=== PATIENT | female | born 1935 | race Caucasian/White ===

== ENCOUNTER → 2017-08-09 | Outpatient (CLI) | payer MEDICARE ==
[~2017-08-09] MED LIST: CALC1TAB87 PO; CHOL1CAP34 PO; DOCU1CAP39 PO; HYDR2.5%T PR; LEVO.1 PO; LEVO100T5 PO; METR250 PO; PYRI50TA5 PO; b/p med
[2017-08-09 13:07] LABS: AUTOMATED NEUTROPHIL # 5.4 TH/MM3 (1.8-7.7); BASOPHIL # 0.1 TH/MM3 (0-0.2); BASOPHIL % 0.8 % (0.0-2.0); EOSINOPHIL % 0.2 % (0.0-4.0); HEMATOCRIT 33.1 % (35.0-46.0); HEMOGLOBIN 10.7 GM/DL (11.6-15.3); LYMPH % 14.1 % (9.0-44.0); MEAN CELL VOLUME 92.1 FL (80.0-100.0); MEAN CORPUSCULAR HEMOGLOBIN 29.8 PG (27.0-34.0); MEAN CORPUSCULAR HGB CONC 32.4 % (32.0-36.0); MEAN PLATELET VOLUME 9.1 FL (7.0-11.0); MONO % 10.4 % (0.0-8.0); MONOCYTE # 0.8 TH/MM3 (0-0.9); NEUT % 74.5 % (16.0-70.0); PLATELET COUNT 257 TH/MM3 (150-450); RED BLOOD COUNT 3.59 MIL/MM3 (4.00-5.30); RED CELL DISTRIBUTION WIDTH 14.3 % (11.6-17.2); WHITE BLOOD COUNT 7.2 TH/MM3 (4.0-11.0)
== END ==
LOC: PLAB 10:53
PROVIDERS: ATTEND Family Medicine
DX: K92.1 Melena (principal)
CPT/HCPCS: 36415; 85025

== ENCOUNTER 2017-08-10 09:33 | Inpatient (IN) | payer MEDICARE ==
[~2017-08-10] VITALS: Ht 154.9 cm; Wt 97.0 kg
[2017-08-10] VITALS (15 sets, daily range): BP systolic 118–177; BP diastolic 54–85; PULSE 65–108; RESP 15–25; TEMP 97.2–98.5; O2SAT 95–98
[~2017-08-10 09:33] MED LIST changes: -CALC1TAB87 PO; -CHOL1CAP34 PO; -LEVO100T5 PO; -PYRI50TA5 PO; -b/p med
--- NOTE | 2017-08-10 09:57 | PD ---
HPI Chief Complaint: GI Complaint Time Seen by Provider: 09:45 Travel History International Travel<30 days: No Contact w/Intl Traveler<30days: No Traveled to known affect area: No History of Present Illness HPI 81-year-old female states Sunnes morning she developed rectal bleeding. She states she has a history of bleeding in her colon and hemorrhoids. She went to her doctor yesterday and they checked blood work and gave her hemorrhoid cream but the bleeding continues and now she feels weak. She states she is having no pain, fever or other concurrent complaints. She feels worse when she moves around. She denies other modifying factors. Quality is black. Severity is persistent. Duration is 2 days. Patient notes taking Aleve for her knee over the past week. PFSH Past Medical History Arthritis: Yes (KNEES) Asthma: Yes (BRONCHIAL CHRONIC SEASONAL WITH COPD) Autoimmune Disease: No Anxiety: No Depression: No Heart Rhythm Problems: No Cancer: No Cardiovascular Problems: No High Cholesterol: No Chemotherapy: No Chest Pain: No Congestive Heart Failure: No COPD: Yes Cerebrovascular Accident: No Diabetes: Yes Diminished Hearing: No Endocrine: Yes (PARTIAL THYREIDECTOMY) Gastrointestinal Disorders: Yes (ULCERS COLON POLYPS) GERD: No Genitourinary: No Hiatal Hernia: No Immune Disorder: No Kidney Stones: No Musculoskeletal: No Neurologic: No Psychiatric: No Reproductive: No Respiratory: Yes Immunizations Current: Yes Migraines: No Radiation Therapy: No Renal Failure: No Seizures: No Sickle Cell Disease: No Sleep Apnea: Yes (USES MACHINE PRN) Ulcer: Yes (50 YEARS AGO) ?: Not Menopausal: Yes Past Surgical History Abdominal Surgery: Yes (STOMACHE ULCERS) AICD: No Arteriovenous Shunt: No Cardiac Surgery: No Ear Surgery: No Endocrine Surgery: Yes (PARTIAL THYROID REMOVAL) Eye Surgery: Yes (CATARACT BILATERAL) Genitourinary Surgery: No Gynecologic Surgery: No Insulin Pump: No Joint Replacement: No Oral Surgery: No Pacemaker: No Thoracic Surgery: No Other Surgery: Yes (LEG VEINS) Social History Alcohol Use: Yes (OCC) Tobacco Use: No Substance Use: No Allergies-Medications (Allergen,Severity, Reaction): Coded Allergies: No Known Allergies (Unverified Allergy, Unknown, 08/10/17) Reported Meds & Prescriptions Reported Meds & Active Scripts Active Reported [b/p med] Vitamin D3 (Cholecalciferol) 50,000 Unit Cap 50,000 Units PO Q7D Levothyroxine (Levothyroxine Sodium) 100 Mcg Tab 100 Mcg PO DAILY Review of Systems Except as stated in HPI: all other systems reviewed are Neg Physical Exam Narrative GENERAL: Well-nourished, well-developed patient. SKIN: Warm and dry. HEAD: Normocephalic and atraumatic. EYES: No injection or drainage. ENT: No nasal drainage noted. NECK: Supple, trachea midline. CARDIOVASCULAR: Regular rate and rhythm RESPIRATORY: No increased effort. No accessory muscle use. GASTROINTESTINAL: Abdomen soft, non-tender, nondistended. RECTAL EXAM: Performed with technology engineer and after permission. No thrombosed external hemorrhoid or large fissure, stool is black and bloody. NEUROLOGICAL: Awake and alert. Moves all extremities and sensory grossly within normal limits. Normal speech. Data Data Last Documented VS Vital Signs Date Time Temp Pulse Resp B/P (MAP) Pulse Ox O2 Delivery O2 Flow Rate FiO2 08/10/17 09:58 98 Room Air 08/10/17 09:40 98.0 107 16 118/72 (87) Orders Orders Complete Blood Count With Diff (08/10/17 09:50) Comprehensive Metabolic Panel (08/10/17 09:50) Prothrombin Time / Inr (Pt) (08/10/17 09:50) Act Partial Throm Time (Ptt) (08/10/17 09:50) Type And Screen (08/10/17 09:50) Ecg Monitoring (08/10/17 09:50) Iv Access Insert/Monitor (08/10/17 09:50) Oximetry (08/10/17 09:50) Pantoprazole Inj (Protonix Inj) (08/10/17 10:00) Sodium Chloride 0.9% Flush (Ns Flush) (08/10/17 10:00) Blood Product Administration (08/10/17 10:27) Sodium Chlor 0.9% 250 Ml Inj (Ns 250 Ml (08/10/17 10:30) Sodium Chloride 0.9... W/Pantoprazole In (08/10/17 11:09) Admit Order (Ed Use Only) (08/10/17 11:16) Admit To Inpatient (08/10/17 ) Vital Signs (Adult) Q4H (08/10/17 11:16) Activity Oob With Assistance (08/10/17 11:16) Intake + Output DANTE.QSHIFT (08/10/17 11:16) Diet Npo (08/10/17 Lunch) Sodium Chlor 0.9% 1000 Ml Inj (Ns 1000 M (08/10/17 11:16) Sodium Chloride 0.9% Flush (Ns Flush) (08/10/17 11:30) Sodium Chloride 0.9% Flush (Ns Flush) (08/10/17 21:00) Acetaminophen (Tylenol) (08/10/17 11:30) Ondansetron Inj (Zofran Inj) (08/10/17 11:30) Temazepam (Restoril) (08/10/17 11:30) Basic Metabolic Panel (Bmp) (08/11/17 06:00) Complete Blood Count With Diff (08/11/17 06:00) Resp Oxygen Ayush C Titrat 1-4 L (08/10/17 ) Pt Request For Service (08/10/17 11:16) Case Management Consult (08/10/17 11:16) Scd Bilateral/Knee High DANTE.BID (08/10/17 11:16) Bertram Bilateral/Knee High DANTE.QSHIFT (08/10/17 11:16) Pharmacologic Contraindication (08/10/17 11:16) Naloxone Inj (Narcan Inj) (08/10/17 11:30) Docusate Sodium-Senna (Kristin-Colace) (08/10/17 21:00) Magnesium Hydroxide Liq (Milk Of Magnesi (08/10/17 11:30) Sennosides (Senokot) (08/10/17 11:30) Bisacodyl Supp (Dulcolax Supp) (08/10/17 11:30) Lactulose Liq (Lactulose Liq) (08/10/17 11:30) Inpatient Certification (08/10/17 ) Levothyroxine (Synthroid) (08/11/17 09:00) (Nf) Cholecalciferol (Vitamin D3) (08/10/17 11:30) Consult Gastroenterology (08/10/17 ) Labs Laboratory Tests Test 08/10/17 10:08 White Blood Count 6.4 TH/MM3 Red Blood Count 2.83 MIL/MM3 Hemoglobin 8.3 GM/DL Hematocrit 25.8 % Mean Corpuscular Volume 90.9 FL Mean Corpuscular Hemoglobin 29.3 PG Mean Corpuscular Hemoglobin Concent 32.2 % Red Cell Distribution Width 13.7 % Platelet Count 243 TH/MM3 Mean Platelet Volume 8.3 FL Neutrophils (%) (Auto) 73.9 % Lymphocytes (%) (Auto) 17.7 % Monocytes (%) (Auto) 7.4 % Eosinophils (%) (Auto) 0.3 % Basophils (%) (Auto) 0.7 % Neutrophils # (Auto) 4.8 TH/MM3 Lymphocytes # (Auto) 1.1 TH/MM3 Monocytes # (Auto) 0.5 TH/MM3 Eosinophils # (Auto) 0.0 TH/MM3 Basophils # (Auto) 0.0 TH/MM3 CBC Comment DIFF FINAL Differential Comment Prothrombin Time 10.7 SEC Prothromb Time International Ratio 1.1 RATIO Activated Partial Thromboplast Time 22.7 SEC Blood Urea Nitrogen 15 MG/DL Creatinine 0.60 MG/DL Random Glucose 173 MG/DL Total Protein 5.4 GM/DL Albumin 2.6 GM/DL Calcium Level 7.7 MG/DL Alkaline Phosphatase 60 U/L Aspartate Amino Transf (AST/SGOT) 13 U/L Alanine Aminotransferase (ALT/SGPT) 14 U/L Total Bilirubin 0.2 MG/DL Sodium Level 142 MEQ/L Potassium Level 4.0 MEQ/L Chloride Level 108 MEQ/L Carbon Dioxide Level 26.9 MEQ/L Anion Gap 7 MEQ/L Estimat Glomerular Filtration Rate 96 ML/MIN MDM Medical Decision Making Medical Screen Exam Complete: Yes Emergency Medical Condition: Yes Medical Record Reviewed: Yes (past history confirm, prior scope with diverticulosis, internal hemorrhoids, normal EGD) Interpretation(s) CBC & BMP Diagram 08/10/17 10:08 Total Protein 5.4 L, Albumin 2.6 L, Calcium Level 7.7 L, Alkaline Phosphatase 60 , Aspartate Amino Transf (AST/SGOT) 13 L, Alanine Aminotransferase (ALT/SGPT) 14 , Total Bilirubin 0.2 Differential Diagnosis Diverticulosis, ulcer, hemorrhoid, anemia Narrative Course Will check blood work and dose with Protonix and reevaluate patient with worsening anemia of 8.3. Given active bleeding will transfuse 1 unit, note from GI also mentions gastritis so given recent NSAID use Will give Protonix drip and discuss with GI Patient updated and agrees to transfusion and admission Critical Care Narrative Aggregate critical care time was 31 minutes. Time to perform other separately billable procedures was not included in the critical care time. My time did not include minutes spent treating any other patients simultaneously or on activities that did not directly contribute to the patient's treatment. The services I provided to this patient were to treat and/or prevent clinically significant deterioration that could result in: Shock, I provided critical care services requiring my management, as noted below: Chart data review, documentation time, medication orders and management, vital sign assessments/reviewing monitor data, ordering and reviewing lab tests, ordering and interpreting/reviewing x-rays and diagnostic studies, care of the patient and discussion of the patient with the admitting physicians. Physician Communication Physician Communication dr arteaga states can stay in [place], agree to protonix drip and will follow dr robert agrees to admit Diagnosis Primary Impression: Rectal bleeding Additional Impression: Anemia Qualified Codes: D64.9 - Anemia, unspecified Admitting Information Admitting Physician Requests: Admit Princess Ramos MD Aug 10, 2017 09:57
[2017-08-10] MEDS ORDERED: CHOL1CAP34 PO (10:00)
[2017-08-10] MEDS ORDERED: b/p med (10:00)
[2017-08-10] MEDS ORDERED: LEVO100T5 PO (10:00)
[2017-08-10] MEDS ORDERED: PANTOPRAZOLE SODIUM 40 MG VIAL IVP ONE (10:00)
[2017-08-10] MEDS ORDERED: SODIUM CHLORIDE 0.9% FLUSH 10 ML FLUSH IVF PRN (10:00)
[2017-08-10 10:14] LABS: AUTOMATED NEUTROPHIL # 4.8 TH/MM3 (1.8-7.7); BASOPHIL % 0.7 % (0.0-2.0); EOSINOPHIL % 0.3 % (0.0-4.0); HEMATOCRIT 25.8 % (35.0-46.0); HEMOGLOBIN 8.3 GM/DL (11.6-15.3); LYMPH % 17.7 % (9.0-44.0); LYMPHOCYTE # 1.1 TH/MM3 (1.0-4.8); MEAN CELL VOLUME 90.9 FL (80.0-100.0); MEAN CORPUSCULAR HEMOGLOBIN 29.3 PG (27.0-34.0); MEAN CORPUSCULAR HGB CONC 32.2 % (32.0-36.0); MEAN PLATELET VOLUME 8.3 FL (7.0-11.0); MONO % 7.4 % (0.0-8.0); MONOCYTE # 0.5 TH/MM3 (0-0.9); NEUT % 73.9 % (16.0-70.0); PLATELET COUNT 243 TH/MM3 (150-450); RED BLOOD COUNT 2.83 MIL/MM3 (4.00-5.30); RED CELL DISTRIBUTION WIDTH 13.7 % (11.6-17.2); WHITE BLOOD COUNT 6.4 TH/MM3 (4.0-11.0)
[2017-08-10 10:22] LABS: CHLORIDE 108 MEQ/L (98-107); SODIUM (NA) 142 MEQ/L (136-145)
[2017-08-10 10:25] LABS: ALBUMIN 2.6 GM/DL (3.4-5.0); BICARBONATE 26.9 MEQ/L (21.0-32.0); BLOOD UREA NITROGEN 15 MG/DL (7-18); CALCIUM 7.7 MG/DL (8.5-10.1); GLUCOSE,RANDOM 173 MG/DL (74-106)
[2017-08-10 10:27] LABS: INTERNATIONAL NORMALIZED RATIO 1.1 RATIO; PROTHROMBIN TIME - PATIENT 10.7 SEC (9.8-11.6)
[2017-08-10 10:28] LABS: ALT (GPT) 14 U/L (10-53); AST (GOT) 13 U/L (15-37)
[2017-08-10 10:29] LABS: GLOMERULAR FILTRATION RATE 96 ML/MIN (>89)
[2017-08-10 10:30] LABS: TOTAL BILIRUBIN ADULT 0.2 MG/DL (0.2-1.0); TOTAL PROTEIN 5.4 GM/DL (6.4-8.2)
[2017-08-10] MEDS ORDERED: SODIUM CHLOR 0.9% 250 ML INJ 250 ML IV ONE ×2 (10:30→13:45)
[2017-08-10 10:31] LABS: ALKALINE PHOSPHATASE 60 U/L (45-117)
[2017-08-10] MEDS ORDERED: SODIUM CHLORIDE 0.9% FLUSH 10 ML FLUSH IV FLUSH PRN (11:30)
[2017-08-10] MEDS ORDERED: NALOXONE HCL 0.4 MG/ML AMP IV PUSH PRN (11:30)
[2017-08-10] MEDS ORDERED: LACTULOSE SYRUP 20 GM/30 ML CUP PO PRN (11:30)
[2017-08-10] MEDS ORDERED: MAGNESIUM HYDROXIDE SUSP 30 ML CUP PO PRN (11:30)
[2017-08-10] MEDS ORDERED: TEMAZEPAM 15 MG CAP PO PRN (11:30)
[2017-08-10] MEDS ORDERED: SENNOSIDES 8.6 MG TAB PO PRN (11:30)
[2017-08-10] MEDS ORDERED: ONDANSETRON HCL 4 MG/2 ML VIAL IVP PRN (11:30)
[2017-08-10] MEDS ORDERED: ACETAMINOPHEN 325 MG TAB PO PRN (11:30)
[2017-08-10] MEDS ORDERED: NON-FORMULARY DRUG (Cholecalciferol (Vitamin D3) 50,000 UNITS) PO SCH (11:30)
[2017-08-10] MEDS ORDERED: BISACODYL 10 MG SUPP RECTAL PRN (11:30)
[2017-08-10] MEDS: PANTOPRAZOLE INJ 80 MG in SODIUM CHLORIDE 0.9% INJ 100 ML IV SCH ×2 (11:41→21:23)
[2017-08-10] MEDS ORDERED: CALC1TAB87 PO (13:09)
--- NOTE | 2017-08-10 13:20 | HHI.HP ---
[facility] Wen Carmen MD Admission Diagnosis GI bleed Diagnoses: (1) Anemia (2) Rectal bleeding Chief Complaint: Bloody stools Travel History International Travel<30 Days: No Contact w/Intl Traveler <30 Da: No Traveled to Known Affected Are: No History of Present Illness Written by Chrissy Sandoval, acting as scribe for Dr. Hu on 08/10/17 at 13:15. Ms. Moran is an 81-year-old female patient with a known medical history of COPD, DM and history of gastric ulcers who presented to the ED with complaints of rectal bleeding x 2 days. Patient lives alone and has been feeling weak and passing blood in her stool so she decided to come into the ED. Does admit to taking Advil for knee inflammation x 7 days. Denies any recent illness including fever, chills, shortness of breath, abdominal pain, nausea, vomiting, diarrhea or dysuria. Denies any further bleeding since being hospitalized. Denies any chest pain or shortness of breath. Overall patient is pretty healthy and denies any other acute complaints. PCP is Dr. Edouard. Review of Systems Constitutional: DENIES: Fever, Chills Respiratory: DENIES: Cough, Shortness of breath Cardiovascular: DENIES: Syncope Gastrointestinal: COMPLAINS OF: Bloody stools, DENIES: Abdominal pain, Diarrhea , Nausea, Vomiting Psychiatric: DENIES: Anxiety Except as stated in HPI: all other systems reviewed are Neg Past Family Social History Past Medical History Arthritis COPD with chronic seasonal bronchitis Type 2 diabetes mellitus Partial thyroidectomy History of gastric ulcers History of colon polyps Past Surgical History Partial thyroid removal Bilateral cataracts Reported Medications Active Reported Calcium 600 with Vitamin D (Calcium Carbonate-Cholecalciferol) 600-400 mg-Unit Tab 2 Tab PO DAILY [b/p med] Vitamin D3 (Cholecalciferol) 50,000 Unit Cap 5,000 Units PO DAILY Levothyroxine (Levothyroxine Sodium) 100 Mcg Tab 100 Mcg PO DAILY Allergies: Coded Allergies: No Known Allergies (Unverified Allergy, Unknown, 08/10/17) Active Ordered Medications Current Medications Medications (Trade) Dose Ordered Sig/Odilia Route Start Time Stop Time Status Last Admin Sodium Chloride 250 ml @ 15 mls/hr ONCE ONCE IV 08/10/17 10:30 08/11/17 03:09 Pantoprazole Sodium 80 mg/ Sodium Chloride 100 ml @ 10 mls/hr Q10H IV 08/10/17 11:09 08/10/17 11:41 Sodium Chloride 1,000 ml @ 100 mls/hr Q10H IV 08/10/17 11:16 (NS Flush) 2 ml UNSCH PRN IV FLUSH 08/10/17 11:30 (NS Flush) 2 ml BID IV FLUSH 08/10/17 21:00 (Tylenol) 650 mg Q4H PRN PO 08/10/17 11:30 (Zofran Inj) 4 mg Q6H PRN IVP 08/10/17 11:30 (Restoril) 15 mg HS PRN PO 08/10/17 11:30 (Narcan Inj) 0.4 mg UNSCH PRN IV PUSH 08/10/17 11:30 (Kristin-Colace) 1 tab BID PO 08/10/17 21:00 (Milk Of Magnesia Liq) 30 ml Q12H PRN PO 08/10/17 11:30 (Senokot) 17.2 mg Q12H PRN PO 08/10/17 11:30 (Dulcolax Supp) 10 mg DAILY PRN RECTAL 08/10/17 11:30 (Lactulose Liq) 30 ml DAILY PRN PO 08/10/17 11:30 (Synthroid) 100 mcg DAILY@0600 PO 08/11/17 06:00 Non-Formulary Medication 50,000 units Q7D PO 08/10/17 11:30 UNV Family History Family medical history significant for DM. Social History Denies any tobacco, alcohol or illicit drug use. Physical Exam Vital Signs Vital Signs Date Time Temp Pulse Resp B/P (MAP) Pulse Ox O2 Delivery O2 Flow Rate FiO2 08/10/17 11:44 77 16 135/60 (85) Room Air 96 08/10/17 09:58 98 Room Air 08/10/17 09:40 98.0 107 16 118/72 (87) 95 Physical Exam GENERAL: This is a well-nourished, well-developed patient, in no apparent distress. SKIN: No rashes, ecchymoses or lesions. Cool and dry. HEAD: Atraumatic. Normocephalic. No temporal or scalp tenderness. EYES: Pupils equal round and reactive. Extraocular motions intact. No scleral icterus. No injection or drainage. ENT: Nose without bleeding, purulent drainage or septal hematoma. Throat without erythema, tonsillar hypertrophy or exudate. Uvula midline. Airway patent. NECK: Trachea midline. No JVD or lymphadenopathy. Supple, nontender, no meningeal signs. CARDIOVASCULAR: Regular rate and rhythm without murmurs, gallops, or rubs. RESPIRATORY: Clear to auscultation. Breath sounds equal bilaterally. No wheezes , rales, or rhonchi. GASTROINTESTINAL: Abdomen soft, non-tender, nondistended. No hepato-splenomegaly , or palpable masses. No guarding. MUSCULOSKELETAL: Extremities without clubbing, cyanosis, or edema. No joint tenderness, effusion, or edema noted. No calf tenderness. Negative Homans sign bilaterally. NEUROLOGICAL: Awake and alert. Cranial nerves II through XII intact. Motor and sensory grossly within normal limits. Five out of 5 muscle strength in all muscle groups. Normal speech. Laboratory Laboratory Tests Test 08/10/17 10:08 White Blood Count 6.4 Red Blood Count 2.83 Hemoglobin 8.3 Hematocrit 25.8 Mean Corpuscular Volume 90.9 Mean Corpuscular Hemoglobin 29.3 Mean Corpuscular Hemoglobin Concent 32.2 Red Cell Distribution Width 13.7 Platelet Count 243 Mean Platelet Volume 8.3 Neutrophils (%) (Auto) 73.9 Lymphocytes (%) (Auto) 17.7 Monocytes (%) (Auto) 7.4 Eosinophils (%) (Auto) 0.3 Basophils (%) (Auto) 0.7 Neutrophils # (Auto) 4.8 Lymphocytes # (Auto) 1.1 Monocytes # (Auto) 0.5 Eosinophils # (Auto) 0.0 Basophils # (Auto) 0.0 CBC Comment DIFF FINAL Differential Comment Prothrombin Time 10.7 Prothromb Time International Ratio 1.1 Activated Partial Thromboplast Time 22.7 Blood Urea Nitrogen 15 Creatinine 0.60 Random Glucose 173 Total Protein 5.4 Albumin 2.6 Calcium Level 7.7 Alkaline Phosphatase 60 Aspartate Amino Transf (AST/SGOT) 13 Alanine Aminotransferase (ALT/SGPT) 14 Total Bilirubin 0.2 Sodium Level 142 Potassium Level 4.0 Chloride Level 108 Carbon Dioxide Level 26.9 Anion Gap 7 Estimat Glomerular Filtration Rate 96 Result Diagram: 08/10/17 1008 08/10/17 1008 Septic Shock Reassessment Septic shock perfusion: reassessment completed Caprini VTE Risk Assessment Caprini VTE Risk Assessment: Mod/High Risk (score >= 2) Caprini Risk Assessment Model Point Value = 1 Point Value = 2 Point Value = 3 Point Value = 5 Age 41-60 Minor surgery BMI > 25 kg/m2 Swollen legs Varicose veins or History of unexplained or recurrent spontaneous Oral contraceptives or hormone replacement Sepsis (< 1 month) Serious lung disease, including pneumonia (< 1 month) Abnormal pulmonary function Acute myocardial infarction Congestive heart failure (< 1 month) History of inflammatory bowel disease Medical patient at bed rest Age 61-74 Arthroscopic surgery Major open surgery (> 45 min) Laparoscopic surgery (> 45 min) Malignancy Confined to bed (> 72 hours) Immobilizing plaster cast Central venous access Age >= 75 History of VTE Family history of VTE Factor V Leiden Prothrombin [id number] Lupus anticoagulant Anticardiolipin antibodies Elevated serum homocysteine Heparin-induced thrombocytopenia Other congenital or acquired thrombophilia Stroke (< 1 month) Elective arthroplasty Hip, pelvis, or leg fracture Acute spinal cord injury (< 1 month) Prophylaxis Regimen Total Risk Factor Score Risk Level Prophylaxis Regimen 0-1 Low Early ambulation 2 Moderate Order ONE of the following: *Sequential Compression Device (SCD) *Heparin 5000 units SQ BID 3-4 Higher Order ONE of the following medications: *Heparin 5000 units SQ TID *Enoxaparin/Lovenox 40 mg SQ daily (WT < 150 kg, CrCl > 30 mL/min) *Enoxaparin/Lovenox 30 mg SQ daily (WT < 150 kg, CrCl > 10-29 mL/min) *Enoxaparin/Lovenox 30 mg SQ BID (WT < 150 kg, CrCl > 30 mL/min) AND/OR *Sequential Compression Device (SCD) 5 or more Highest Order ONE of the following medications: *Heparin 5000 units SQ TID (Preferred with Epidurals) *Enoxaparin/Lovenox 40 mg SQ daily (WT < 150 kg, CrCl > 30 mL/min) *Enoxaparin/Lovenox 30 mg SQ daily (WT < 150 kg, CrCl > 10-29 mL/min) *Enoxaparin/Lovenox 30 mg SQ BID (WT < 150 kg, CrCl > 30 mL/min) AND *Sequential Compression Device (SCD) Assessment and Plan Assessment and Plan Ms. Moran is an 81-year-old female patient with a known medical history of COPD, DM and history of gastric ulcers who presented to the ED with complaints of rectal bleeding x 2 days. Gastrointestinal bleed with two day history of bloody stools suspect secondary to NSAID use History of gastric ulcers and colon polyps Abdominal/Pelvis CT reviewed showing uncomplicated colonic diverticulosis. Mild prominence of the distal common bile duct measuring 10 mm. Stable right renal cyst. GI has been consulted, appreciate further recommendations and input. Plan for EGD/Colonoscopy tomorrow am. CBC reviewed showing Hemiglobin 8.3/Hematocrit 25.8. ED ordered for 1 unit PRBC transfusion. Continue to trend H&H post administration. Placed on Protonix drip. Continue. Ensure hydration, Continue IVF. PT request to evaluate and treat, appreciate further recommendations. Supplemental O2 to keep sats >92%. Supportive care. Hypothyroidism, chronic: Continue home Levothyroxine. DVT prophylaxis: SCDs. This note was transcribed by SUSU Dukes. I, Dr. Jerica Hu personally performed the history, physical exam, and medical decision making; and confirmed the accuracy of the information in the transcribed note. Authenticated by Dr. Jerica Hu on 08/10/17 at 13:15. Physician Certification 2 Midnight Certification Type: Admission for Inpatient Services Order for Inpatient Services The services are ordered in accordance with Medicare regulations or non- Medicare payer requirements, as applicable. In the case of services not specified as inpatient-only, they are appropriately provided as inpatient services in accordance with the 2-midnight benchmark. Estimated LOS (days): 2 2 days is the estimated time the patient will need to remain in the hospital, assuming treatment plan goals are met and no additional complications. Post-Hospital Plan: Not yet determined Problem Qualifiers (1) Anemia: Qualified Codes: D64.9 - Anemia, unspecified Chrissy Sandoval Aug 10, 2017 13:20 Jerica Hu MD Aug 10, 2017 19:42
[2017-08-10] MEDS ORDERED: PYRI50TA5 PO (13:55)
[2017-08-10] MEDS ORDERED: PEG (High)/E-LYTE SOLN 4000 ML BTL PO ONE (14:00)
--- NOTE | 2017-08-10 15:44 | MB ---
cc: JO-ANN TRAYLOR MD, HASSAN M.D. COSMA, MIRELA MD DATE OF CONSULTATION: August 10, 2017 REASON FOR CONSULTATION Rectal bleeding, melena and anemia. HISTORY OF PRESENT ILLNESS: Ms. Moran is a 81-year-old lady with couple of days history of the lower GI bleeding which she initially attributed to hemorrhoids. She says she started seeing some dark blood and it got copious in amount this morning and she decided to come to the hospital. In the emergency room she still has gross melena on rectal exam, hemoglobin is 8.3 which is under her baseline of around 11. She has been taking some Aleve for her knee pain recently. Currently there is no abdominal pain. No nausea, vomiting, no hematemesis or hematochezia. PAST MEDICAL HISTORY COPD Arthritis Diabetes History of gastric ulcers History of colon polyps. PAST SURGICAL HISTORY Thyroid removal Cataract surgery. MEDICATIONS On admission Levothyroxine Vitamin B3 Hydrocortisone cream. ALLERGIES None documented SOCIAL HISTORY No tobacco, no alcohol reported, PHYSICAL EXAMINATION: IN GENERAL: The physical examination reveals a well-nourished lady in no apparent distress. HEAD AND NECK: Anicteric sclerae. Conjunctivae pale. Pupils reactive to light. CARDIOVASCULAR: S1 and S2 within normal limits. No murmurs. CHEST: Bilateral air entry. ABDOMEN: Soft, nontender. EXTREMITIES: No clubbing or cyanosis. CENTRAL NERVOUS SYSTEM: Nonfocal. IMPRESSION Melena, anemia and GI bleeding. RECOMMENDATIONS 1. Esophagogastroduodenoscopy and colonoscopy discussed with the patient this will be scheduled for tomorrow. <<2:04>> will scope the patient tomorrow. Previous EGD colonoscopy had revealed gastritis and diverticulosis. 2. Continue to monitor labs. 3. Continue IV Protonix. 4. Transfuse as needed. 5. Will follow with you. 6. Thank you for this referral. MD PILAR Valdez/dao /1:26 PM /3:22 PM
[2017-08-10] MEDS: SODIUM CHLORIDE 0.9% FLUSH 10 ML FLUSH IV FLUSH SCH (21:00)
[2017-08-10] MEDS: DOCUSATE SODIUM 50 MG/SENNA 8.6 MG TAB PO SCH (21:00)
[2017-08-10] MEDS: SODIUM CHLOR 0.9% 1000 ML INJ 1,000 ML IV SCH ×2 (21:16→21:32)
[2017-08-11] VITALS (31 sets, daily range): BP systolic 118–175; BP diastolic 52–90; PULSE 78–92; RESP 10–41; TEMP 82–99.5; O2SAT 91–100
[2017-08-11] MEDS: PANTOPRAZOLE INJ 80 MG in SODIUM CHLORIDE 0.9% INJ 100 ML IV SCH ×2 (03:56→17:38)
[2017-08-11] MEDS: LEVOTHYROXINE SODIUM 100 MCG TAB PO SCH (05:54)
[2017-08-11 06:02] LABS: AUTOMATED NEUTROPHIL # 4.4 TH/MM3 (1.8-7.7); BASOPHIL % 0.6 % (0.0-2.0); EOSINOPHIL % 0.6 % (0.0-4.0); HEMATOCRIT 23.4 % (35.0-46.0); HEMOGLOBIN 7.5 GM/DL (11.6-15.3); LYMPH % 30.4 % (9.0-44.0); LYMPHOCYTE # 2.4 TH/MM3 (1.0-4.8); MEAN CELL VOLUME 91.5 FL (80.0-100.0); MEAN CORPUSCULAR HEMOGLOBIN 29.3 PG (27.0-34.0); MEAN PLATELET VOLUME 8.3 FL (7.0-11.0); MONO % 12.8 % (0.0-8.0); NEUT % 55.6 % (16.0-70.0); PLATELET COUNT 226 TH/MM3 (150-450); RED BLOOD COUNT 2.56 MIL/MM3 (4.00-5.30); RED CELL DISTRIBUTION WIDTH 13.6 % (11.6-17.2); WHITE BLOOD COUNT 7.8 TH/MM3 (4.0-11.0)
[2017-08-11 06:24] LABS: BICARBONATE 31.5 MEQ/L (21.0-32.0); CALCIUM 7.1 MG/DL (8.5-10.1); CREATININE 0.49 MG/DL (0.50-1.00)
[2017-08-11 06:36] LABS: CALCIUM-PROTEIN CORRECTED 8.4 MG/DL (8.5-10.1); TOTAL PROTEIN 4.7 GM/DL (6.4-8.2)
[2017-08-11] MEDS: SODIUM CHLORIDE 0.9% FLUSH 10 ML FLUSH IV FLUSH SCH ×2 (08:12→21:00)
[2017-08-11] MEDS: DOCUSATE SODIUM 50 MG/SENNA 8.6 MG TAB PO SCH ×2 (08:15→21:00)
[2017-08-11] MEDS: SODIUM CHLOR 0.9% 1000 ML INJ 1,000 ML IV SCH ×2 (08:15→22:05)
[2017-08-11] MEDS: CHOLECALCIFEROL (VIT D3) 5000 UNIT CAP PO SCH (08:15)
[2017-08-11] MEDS ORDERED: SODIUM CHLOR 0.9% 250 ML INJ 250 ML IV ONE (09:15)
--- NOTE | 2017-08-11 09:15 | HHI.PR ---
Subjective Remarks Had 1 episode of bloody diarrhea . H/H did not improved much with transfusion, will transfuse 2U, s/p colonoscopy Objective Vitals Vital Signs Date Time Temp Pulse Resp B/P (MAP) Pulse Ox O2 Delivery O2 Flow Rate FiO2 08/11/17 08:19 98.6 86 24 145/73 (97) 98 08/11/17 08:00 82 08/11/17 07:00 90 08/11/17 04:00 92 08/11/17 04:00 99.5 80 16 130/52 (78) 98 08/11/17 00:00 98.6 79 16 118/55 (76) 97 08/11/17 00:00 84 08/10/17 20:00 97.2 108 20 177/68 (104) 95 08/10/17 20:00 102 08/10/17 19:15 96 21 08/10/17 18:06 98.2 96 16 158/85 08/10/17 16:23 98.1 76 18 140/60 (86) 97 08/10/17 16:00 78 08/10/17 15:28 78 25 136/54 (81) 08/10/17 15:27 98.5 76 22 136/54 08/10/17 15:13 84 22 122/67 (85) 08/10/17 15:10 98.4 83 15 122/67 96 08/10/17 12:15 65 08/10/17 12:10 98.4 80 23 147/61 (89) 96 08/10/17 11:45 96 21 08/10/17 11:44 77 16 135/60 (85) Room Air 96 08/10/17 09:58 98 Room Air 08/10/17 09:40 98.0 107 16 118/72 (87) 95 I/O 08/10/17 08/10/17 08/10/17 08/11/17 08/11/17 08/11/17 07:00 15:00 23:00 07:00 15:00 23:00 Intake Total 2215 ml 100 ml Balance 2215 ml 100 ml Intake Oral 1600 ml IV Total 165 ml 100 ml Packed Cells 400 ml Blood Product IV Normal Saline Flush 50 ml # Voids 3 # Bowel Movements 3 7 Result Diagram: 08/11/17 0548 08/11/1748 Objective Remarks GENERAL: This is a well-nourished, well-developed patient, in no apparent distress. RESPIRATORY: Clear to auscultation. Breath sounds equal bilaterally. No wheezes , rales, or rhonchi. GASTROINTESTINAL: Abdomen soft, non-tender, nondistended. No hepato-splenomegaly , or palpable masses. No guarding. MUSCULOSKELETAL: Extremities without clubbing, cyanosis, or edema. No joint tenderness, effusion, or edema noted. No calf tenderness. Negative Homans sign bilaterally. NEUROLOGICAL: Awake and alert. Cranial nerves II through XII intact. Motor and sensory grossly within normal limits. Five out of 5 muscle strength in all muscle groups. Normal speech. A/P Problem List: (1) Anemia ICD Code: D64.9 - Anemia, unspecified Status: Acute (2) Rectal bleeding ICD Code: K62.5 - Hemorrhage of anus and rectum Status: Acute Assessment and Plan Ms. Moran is an 81-year-old female patient with a known medical history of COPD, DM and history of gastric ulcers who presented to the ED with complaints of rectal bleeding x 2 days. Gastrointestinal bleed with two day history of bloody stools suspect secondary to NSAID use History of gastric ulcers and colon polyps Abdominal/Pelvis CT reviewed showing uncomplicated colonic diverticulosis. Mild prominence of the distal common bile duct measuring 10 mm. Stable right renal cyst. GI has been consulted, appreciate further recommendations and input. Plan for EGD/Colonoscopy tomorrow am. CBC reviewed showing Hemiglobin 8.3/Hematocrit 25.8. ED ordered for 1 unit PRBC transfusion. Continue to trend H&H post administration. Repeat HGB at 7.5 ordered additional 2U PRBCs.pretreat Placed on Protonix drip. Continue. Ensure hydration, Continue IVF. PT request to evaluate and treat, appreciate further recommendations. Supplemental O2 to keep sats >92%. Supportive care. S/P colonoscopy diverticulosis but no source of bleeding. PLAN for IR for angiogram if continue to bleed, selective to KSENIA circulation. Hypothyroidism, chronic: Continue home Levothyroxine. DVT prophylaxis: SCDs. Discharge when improved and cleared by GI. Possible transfer to maintain hospital if need for IR consult for angiogram. Notify GI specialist if more bleeding occur Problem Qualifiers (1) Anemia: Qualified Codes: D64.9 - Anemia, unspecified Jerica Hu MD Aug 11, 2017 09:15
--- NOTE | 2017-08-11 09:48 | GIPROC ---
[facility] [address] [place] [address], [id number] EGD PROCEDURE REPORT EXAM DATE: 08/11/2017 PATIENT NAME: Bernice Moran MR #: [id number] BIRTHDATE: 1935 ATTENDING: Zahra Gold MD ORDER #: [id number] DATABASE ADMINISTRATOR: Honey Pereira and Preet Robert STATUS: inpatient INDICATIONS: The patient is a 81 yr old female here for an EGD due to anemia and hematochezia PROCEDURE PERFORMED: EGD w/ biopsy MEDICATIONS: None and Per Anesthesia. TOPICAL ANESTHETIC: none CONSENT: The patient understands the risks and benefits of the procedure and understands that these risks include, but are not limited to: sedation, allergic reaction, infection, perforation and/or bleeding. Alternative means of evaluation and treatment include, among others: physical exam, x-rays, and/or surgical intervention. The patient elects to proceed with this endoscopic procedure. medical equipment was checked for proper function. Hand hygiene and appropriate measures for infection prevention was taken. After the risks, benefits and alternatives of the procedure were thoroughly explained, Informed consent was verified, confirmed and timeout was successfully executed by the treatment team. The patient was anesthetized with topical anesthesia and the EC-3490Li (Pedi C) endoscope was introduced through the mouth and advanced to the second portion of the duodenum. Retroflexion was performed and was normal The gastroscope was then slowly withdrawn and removed. ESOPHAGUS: The esophagus was otherwise normal. STOMACH: There was erythematous moderate gastritis in the gastric antrum. Multiple biopsies were performed using cold forceps. Sample sent for histology. DUODENUM: The duodenal mucosa appeared normal in the bulb and second portion of the duodenum. ADVERSE EVENTS: There were no complications. IMPRESSIONS: 1. The esophagus was otherwise normal 2. There was erythematous gastritis in the gastric antrum; multiple biopsies were performed 3. Normal duodenal mucosa in the bulb and second portion of the duodenum 4. Retroflexion was performed and was normal RECOMMENDATIONS: 1. Await biopsy results. Biopsy results will not be ready for 7-10 days. If you don't hear from us in two weeks, call our office for biopsy results. 2. Continue PPI PATIENT CONDITION: stable DISPOSITION: Observation REPEAT EXAM: NONE Zahra Gold MD eSigned: Zahra Gold MD 08/11/2017 9:47 AM cc: PATIENT NAME: Bernice Moran MR#: [id number]
[2017-08-11] MEDS ORDERED: LACTATED RINGER'S 1000 ML IV PRN (10:00)
[2017-08-11] MEDS ORDERED: SODIUM CHLORID 0.9% 500 ML IV PRN (10:00)
[2017-08-11] MEDS ORDERED: POVIDONE IODINE 5% (ANTISEPSIS KIT) 4 APPLICATIONS EACH NARE PRN (10:00)
[2017-08-11] MEDS ORDERED: METOPROLOL TARTRATE 25 MG TAB PO PRN (10:00)
[2017-08-11] MEDS ORDERED: INSULIN HUMAN REGULAR 1,000 UNITS/10 ML VIAL SQ PRN (10:00)
[2017-08-11] MEDS ORDERED: CHLORHEXIDINE GLUCONATE 2 % 1 PACK (2 CLOTHS) TOPICAL PRN (10:00)
--- NOTE | 2017-08-11 10:03 | GIPROC ---
[facility] [address] [place] [address], [id number] COLONOSCOPY PROCEDURE REPORT EXAM DATE: 08/11/2017 PATIENT NAME: Bernice Moran MR #: [id number] BIRTHDATE: 1935 ENDOSCOPIST: Zahra Gold MD ORDER #: [id number] UNEMPLOYMENT EXAMINER: Honey Pereira and Preet Robert STATUS: inpatient INDICATIONS: The patient is a 81 yr old female here for a colonoscopy due to rectal bleeding PROCEDURE PERFORMED: Colonoscopy, diagnostic MEDICATIONS: None and Per Anesthesia. PREP QUALITY: fair PREP TYPE:GoLytely ESTIMATED BLOOD LOSS: None CONSENT: The patient understands the risks and benefits of the procedure and understands that these risks include, but are not limited to: sedation, allergic reaction, infection, perforation and/or bleeding. Alternative means of evaluation and treatment include, among others: physical exam, x-rays, and/or surgical intervention. The patient elects to proceed with this endoscopic procedure. medical equipment was checked for proper function. Hand hygiene and appropriate measures for infection prevention was taken. After the risks, benefits and alternatives of the procedure were thoroughly explained, Informed consent was verified, confirmed and timeout was successfully executed by the treatment team. A digital exam revealed no abnormalities of the rectum The Pentax EC-3490Li endoscope was introduced through the anus and advanced to the cecum, which was identified by both the appendix and ileocecal valve. The instrument was then slowly withdrawn as the colon was fully examined. COLON FINDINGS: There was severe diverticulosis noted in the sigmoid colon and descending colon with associated tortuosity. A small amount of fresh blood was found in the sigmoid colon and descending colon. A small amount of stool was present at the cecum, in the ascending colon, at the hepatic flexure, in the transverse colon, and at the splenic flexure. Retroflexion was not performed due to a narrow rectal vault The scope was then completely withdrawn from the patient and the procedure terminated. PROCEDURE WITHDRAWAL TIME:9minutes ADVERSE EVENTS: There were no complications. IMPRESSIONS: 1. There was severe diverticulosis noted in the sigmoid colon and descending colon 2. Blood was found in the sigmoid colon and descending colon 3. Greenish stool was present at the cecum, in the ascending colon, at the hepatic flexure, in the transverse colon, and at the splenic flexure 4. Findings suggestive of recent diverticular bleeding from the sigmoid / descending colon area, no active bleeding now, and exact site could not be identified. RECOMMENDATIONS: IR for angiogram if continue to bleed, selective to KSENIA circulation. RECALL: NONE Zahra Gold MD eSigned: Zahra Gold MD 08/11/2017 10:03 AM cc: PATIENT NAME: Bernice Moran MR#: [id number]
[2017-08-11 10:59] LABS: HEMATOCRIT 24.4 % (35.0-46.0); HEMOGLOBIN 7.9 GM/DL (11.6-15.3)
[2017-08-11] MEDS ORDERED: PROPOFOL 200 MG/20 ML AMP IV ONE (12:00)
[2017-08-11] MEDS ORDERED: FUROSEMIDE 20 MG/2 ML VIAL IV PUSH ONE ×2 (15:45→17:45)
[2017-08-11] MEDS ORDERED: POTASSIUM CHLORIDE 10 MEQ CONTROLLED RELEASE TAB PO ONE (18:00)
[2017-08-12] VITALS (9 sets, daily range): BP systolic 117–165; BP diastolic 56–74; PULSE 73–100; RESP 18–33; TEMP 97.2–98.6; O2SAT 92–97
[2017-08-12] MEDS: PANTOPRAZOLE INJ 80 MG in SODIUM CHLORIDE 0.9% INJ 100 ML IV SCH ×3 (03:53→21:42)
[2017-08-12] MEDS: SODIUM CHLOR 0.9% 1000 ML INJ 1,000 ML IV SCH ×2 (03:55→11:12)
[2017-08-12] MEDS: LEVOTHYROXINE SODIUM 100 MCG TAB PO SCH (05:59)
[2017-08-12 06:40] LABS: AUTOMATED NEUTROPHIL # 4.7 TH/MM3 (1.8-7.7); BASOPHIL % 0.6 % (0.0-2.0); EOSINOPHIL # 0.1 TH/MM3 (0-0.4); EOSINOPHIL % 1.8 % (0.0-4.0); HEMATOCRIT 29.8 % (35.0-46.0); HEMOGLOBIN 9.9 GM/DL (11.6-15.3); LYMPH % 26.3 % (9.0-44.0); LYMPHOCYTE # 2.1 TH/MM3 (1.0-4.8); MEAN CELL VOLUME 87.9 FL (80.0-100.0); MEAN CORPUSCULAR HEMOGLOBIN 29.1 PG (27.0-34.0); MEAN CORPUSCULAR HGB CONC 33.1 % (32.0-36.0); MEAN PLATELET VOLUME 8.8 FL (7.0-11.0); MONO % 13.7 % (0.0-8.0); MONOCYTE # 1.1 TH/MM3 (0-0.9); NEUT % 57.6 % (16.0-70.0); PLATELET COUNT 236 TH/MM3 (150-450)
[2017-08-12 06:57] LABS: CALCIUM 7.6 MG/DL (8.5-10.1)
[2017-08-12 06:58] LABS: BICARBONATE 29.7 MEQ/L (21.0-32.0)
[2017-08-12 07:01] LABS: CREATININE 0.48 MG/DL (0.50-1.00)
[2017-08-12] MEDS: DOCUSATE SODIUM 50 MG/SENNA 8.6 MG TAB PO SCH ×2 (08:42→21:14)
[2017-08-12] MEDS: CHOLECALCIFEROL (VIT D3) 5000 UNIT CAP PO SCH (08:42)
[2017-08-12] MEDS: SODIUM CHLORIDE 0.9% FLUSH 10 ML FLUSH IV FLUSH SCH ×2 (08:42→21:14)
--- NOTE | 2017-08-12 09:52 | HHI.PR ---
Subjective Remarks HGB improved after blood transfusion. Feels better. No more bleeding. no n/v/d/ c. Feels comfortable to advance dier, also discussed with GI Dr Caraballo Objective Vitals Vital Signs Date Time Temp Pulse Resp B/P (MAP) Pulse Ox O2 Delivery O2 Flow Rate FiO2 08/12/17 08:00 73 08/12/17 08:00 98.5 74 18 153/58 (89) 94 08/12/17 04:18 81 08/12/17 04:00 98.6 81 23 157/56 (89) 92 08/12/17 00:11 78 08/12/17 00:00 98.4 93 20 135/56 (82) 93 08/11/17 20:00 98.4 87 30 161/84 (109) 96 08/11/17 20:00 79 08/11/17 19:55 96 21 08/11/17 19:55 98.4 87 30 161/64 96 08/11/17 17:45 82 25 142/69 (93) 94 08/11/17 17:37 82 31 142/59 (86) 08/11/17 17:00 78 38 133/61 (85) 93 08/11/17 16:33 97.4 84 24 140/59 100 08/11/17 16:33 97.4 84 24 140/59 (86) 100 08/11/17 16:00 86 08/11/17 14:08 97.4 80 20 154/63 95 08/11/17 14:08 97.4 80 25 154/63 (93) 92 08/11/17 14:06 82 41 175/62 (99) 93 08/11/17 13:05 82 33 175/85 (115) 93 08/11/17 13:00 80 34 165/69 (101) 94 08/11/17 12:55 82 28 153/67 (95) 92 08/11/17 12:50 82 27 162/68 (99) 93 08/11/17 12:45 82 30 166/70 (102) 93 08/11/17 12:40 82 40 158/85 (109) 93 08/11/17 12:35 82 25 157/64 (95) 92 08/11/17 12:30 80 26 140/64 (89) 92 08/11/17 12:26 98.2 08/11/17 12:25 82 26 154/68 (96) 94 08/11/17 12:21 82.0 82 20 169/70 92 08/11/17 12:21 84 30 169/70 (103) 93 08/11/17 12:20 86 29 166/67 (100) 93 08/11/17 12:14 98.4 82 27 159/70 (99) 91 08/11/17 12:00 82 08/11/17 11:59 98.4 79 18 162/90 92 08/11/17 11:23 95 21 08/11/17 10:20 98.2 84 16 145/66 (92) 95 08/11/17 10:05 90 16 142/64 (90) 96 08/11/17 09:55 98.4 88 16 131/59 (83) 94 I/O 08/11/17 08/11/17 08/11/17 08/12/17 08/12/17 08/12/17 07:00 15:00 23:00 07:00 15:00 23:00 Intake Total 100 ml 1000 ml 2104 ml 100 ml Balance 100 ml 1000 ml 2104 ml 100 ml Intake Oral 200 ml IV Total 100 ml 1379 ml 100 ml Packed Cells 400 ml 400 ml Blood Product IV Normal Saline Flush 125 ml Other 600 ml # Voids 5 2 # Bowel Movements 7 4 Result Diagram: 08/12/1760508/12/17605 Objective Remarks GENERAL: This is a well-nourished, well-developed patient, in no apparent distress. RESPIRATORY: Clear to auscultation. Breath sounds equal bilaterally. No wheezes , rales, or rhonchi. GASTROINTESTINAL: Abdomen soft, non-tender, nondistended. No hepato-splenomegaly , or palpable masses. No guarding. MUSCULOSKELETAL: Extremities without clubbing, cyanosis, or edema. No joint tenderness, effusion, or edema noted. No calf tenderness. Negative Homans sign bilaterally. NEUROLOGICAL: Awake and alert. Cranial nerves II through XII intact. Motor and sensory grossly within normal limits. Five out of 5 muscle strength in all muscle groups. Normal speech. A/P Problem List: (1) Anemia ICD Code: D64.9 - Anemia, unspecified Status: Acute (2) Rectal bleeding ICD Code: K62.5 - Hemorrhage of anus and rectum Status: Acute Assessment and Plan Ms. Moran is an 81-year-old female patient with a known medical history of COPD, DM and history of gastric ulcers who presented to the ED with complaints of rectal bleeding x 2 days. Gastrointestinal bleed with two day history of bloody stools suspect secondary to NSAID use. Sdvice to stop taking NSAIDS. History of gastric ulcers and colon polyps Abdominal/Pelvis CT reviewed showing uncomplicated colonic diverticulosis. Mild prominence of the distal common bile duct measuring 10 mm. Stable right renal cyst. GI has been consulted, appreciate further recommendations and input. Plan for EGD/Colonoscopy tomorrow am. CBC reviewed showing Hemiglobin 8.3/Hematocrit 25.8. ED ordered for 1 unit PRBC transfusion. Continue to trend H&H post administration. Repeat HGB at 7.5 ordered additional 2U PRBCs.pretreat Placed on Protonix drip. Continue. Ensure hydration, Continue IVF. PT request to evaluate and treat, appreciate further recommendations. Supplemental O2 to keep sats >92%. Supportive care. S/P colonoscopy diverticulosis but no source of bleeding. PLAN for IR for angiogram if continue to bleed, selective to KSENIA circulation. Hypothyroidism, chronic: Continue home Levothyroxine. DVT prophylaxis: SCDs. Discharge when improved and cleared by GI. Possible transfer to maintain hospital if need for IR consult for angiogram. Notify GI specialist if more bleeding occur. However patient improving, no more bleeding HGB improved after transfusion, discussed with GI, Dr Ilya BROWNING tomorrow if HGB stable an if tolerates food and no more bleeding. Problem Qualifiers (1) Anemia: Qualified Codes: D64.9 - Anemia, unspecified Jerica Hu MD Aug 12, 2017 09:52
--- NOTE | 2017-08-12 13:32 | HHI.GIFU ---
Subjective Remarks No bleeding per rectum for 24 hours, tolerating clears. Objective Vitals I&O Vital Signs Date Time Temp Pulse Resp B/P (MAP) Pulse Ox O2 Delivery O2 Flow Rate FiO2 08/12/17 12:00 83 08/12/17 12:00 98.3 80 33 138/66 (90) 93 08/12/17 12:00 98.3 74 18 153/58 (89) 93 08/12/17 08:00 94 21 08/12/17 08:00 73 08/12/17 08:00 98.5 74 18 153/58 (89) 94 08/12/17 04:18 81 08/12/17 04:00 98.6 81 23 157/56 (89) 92 08/12/17 00:11 78 08/12/17 00:00 98.4 93 20 135/56 (82) 93 08/11/17 20:00 98.4 87 30 161/84 (109) 96 08/11/17 20:00 79 08/11/17 19:55 96 21 08/11/17 19:55 98.4 87 30 161/64 96 08/11/17 17:45 82 25 142/69 (93) 94 08/11/17 17:37 82 31 142/59 (86) 08/11/17 17:00 78 38 133/61 (85) 93 08/11/17 16:33 97.4 84 24 140/59 100 08/11/17 16:33 97.4 84 24 140/59 (86) 100 08/11/17 16:00 86 08/11/17 14:08 97.4 80 20 154/63 95 08/11/17 14:08 97.4 80 25 154/63 (93) 92 08/11/17 14:06 82 41 175/62 (99) 93 I/O 08/11/17 08/11/17 08/11/17 08/12/17 08/12/17 08/12/17 07:00 15:00 23:00 07:00 15:00 23:00 Intake Total 100 ml 1000 ml 2104 ml 100 ml Balance 100 ml 1000 ml 2104 ml 100 ml Intake Oral 200 ml IV Total 100 ml 1379 ml 100 ml Packed Cells 400 ml 400 ml Blood Product IV Normal Saline Flush 125 ml Other 600 ml # Voids 5 2 # Bowel Movements 7 4 Laboratory Laboratory Tests Test 08/12/17 06:06 White Blood Count 8.0 Red Blood Count 3.40 Hemoglobin 9.9 Hematocrit 29.8 Mean Corpuscular Volume 87.9 Mean Corpuscular Hemoglobin 29.1 Mean Corpuscular Hemoglobin Concent 33.1 Red Cell Distribution Width 15.0 Platelet Count 236 Mean Platelet Volume 8.8 Neutrophils (%) (Auto) 57.6 Lymphocytes (%) (Auto) 26.3 Monocytes (%) (Auto) 13.7 Eosinophils (%) (Auto) 1.8 Basophils (%) (Auto) 0.6 Neutrophils # (Auto) 4.7 Lymphocytes # (Auto) 2.1 Monocytes # (Auto) 1.1 Eosinophils # (Auto) 0.1 Basophils # (Auto) 0.0 CBC Comment DIFF FINAL Differential Comment Blood Urea Nitrogen 7 Creatinine 0.48 Random Glucose 102 Calcium Level 7.6 Sodium Level 144 Potassium Level 3.7 Chloride Level 109 Carbon Dioxide Level 29.7 Anion Gap 5 Estimat Glomerular Filtration Rate 124 Physical Exam HEENT: Pupils round and reactive to light; normocephalic; atraumatic; no jaundice. Throat is clear. NECK: Neck is supple, no JVD, no lymphadenopathy. CHEST: Chest is clear to auscultation and percussion. CARDIAC: Regular rate and rhythm with no murmur gallop or rubs. ABDOMEN: Soft, nondistended, nontender; no hepatosplenomegaly; bowel sounds are present in all four quadrants. EXTREMITIES: No clubbing, cyanosis, or edema. SKIN: Normal; no rash; no jaundice. Assessment and Plan Plan Sigmoid Diverticular bleeding. No evidence of active bleeding. RECOMMENDATIONS: - LUIS FERNANDO - Transfer to floor - High fiber diet. - If rebleeding Angio/embo with high selection to left colon vasculature. - Will follow up with you. Zahra Gold MD Aug 12, 2017 13:32
[2017-08-13] VITALS: BP 169/67; PULSE 79; RESP 20; TEMP 98.2; O2SAT 94
[2017-08-13] MEDS: SODIUM CHLOR 0.9% 1000 ML INJ 1,000 ML IV SCH ×2 (01:51→09:20)
[2017-08-13] MEDS: LEVOTHYROXINE SODIUM 100 MCG TAB PO SCH (05:31)
[2017-08-13] MEDS: PANTOPRAZOLE INJ 80 MG in SODIUM CHLORIDE 0.9% INJ 100 ML IV SCH ×2 (07:29→19:01)
[2017-08-13 08:51] VITALS: BP 170/75; PULSE 80; RESP 15; TEMP 98.1; O2SAT 95
[2017-08-13] MEDS: SODIUM CHLORIDE 0.9% FLUSH 10 ML FLUSH IV FLUSH SCH ×2 (09:00→21:00)
[2017-08-13] MEDS: DOCUSATE SODIUM 50 MG/SENNA 8.6 MG TAB PO SCH ×2 (09:20→22:07)
[2017-08-13] MEDS: CHOLECALCIFEROL (VIT D3) 5000 UNIT CAP PO SCH (09:20)
--- NOTE | 2017-08-13 09:31 | HHI.PR ---
Subjective Remarks Follow up GI bleed. Patient seen and examined, lying in bed comfortably. RN at bedside. Patient does state that she has one bloody BM last evening. Has been tolerating PO intake, with no abdominal pain, nausea or vomiting. Denies any chest pain or discomfort. Hemoglobin 10.4 today. Afebrile. Some hypertension noted since presentation to hospital, patient does not remember what BP medication she takes at home. PRN clonidine written. Objective Vitals Vital Signs Date Time Temp Pulse Resp B/P (MAP) Pulse Ox O2 Delivery O2 Flow Rate FiO2 08/13/17 08:51 98.1 80 15 170/75 (106) 95 08/13/17 00:00 98.2 79 20 169/67 (101) 94 08/12/17 20:00 97.2 80 20 165/72 (103) 95 08/12/17 16:00 97.9 100 20 117/67 (84) 97 08/12/17 16:00 77 08/12/17 16:00 98.4 78 24 160/74 (102) 94 08/12/17 12:00 83 08/12/17 12:00 98.3 80 33 138/66 (90) 93 08/12/17 12:00 98.3 74 18 153/58 (89) 93 I/O 08/12/17 08/12/17 08/12/17 08/13/17 08/13/17 08/13/17 07:00 15:00 23:00 07:00 15:00 23:00 Intake Total 100 ml 2235 ml 398.8 ml Balance 100 ml 2235 ml 398.8 ml Intake Oral 480 ml IV Total 100 ml 1755 ml 398.8 ml # Voids 2 3 # Bowel Movements 1 Result Diagram: 08/12/1760508/12/17 06 Objective Remarks GENERAL: This is a well-nourished, well-developed patient, in no apparent distress. SKIN: No rashes, ecchymoses or lesions. Warm and dry. HEAD: Atraumatic. Normocephalic. EYES: Pupils equal round and reactive. Extraocular motions intact. No scleral icterus. No injection or drainage. ENT: Nose without bleeding, purulent drainage or septal hematoma. Throat without erythema. Uvula midline. Airway patent. NECK: Trachea midline. No JVD. Supple. CARDIOVASCULAR: Regular rate and rhythm without murmurs, gallops, or rubs. RESPIRATORY: Clear to auscultation. Breath sounds equal bilaterally. No wheezes , rales, or rhonchi. GASTROINTESTINAL: Abdomen soft, non-tender, nondistended. No guarding. MUSCULOSKELETAL: Extremities without clubbing, cyanosis, or edema. No joint tenderness, effusion, or edema noted. NEUROLOGICAL: Awake and alert. Cranial nerves II through XII intact. Motor and sensory grossly within normal limits. Five out of 5 muscle strength in all muscle groups. Normal speech. A/P Problem List: (1) Anemia ICD Code: D64.9 - Anemia, unspecified Status: Acute (2) Rectal bleeding ICD Code: K62.5 - Hemorrhage of anus and rectum Status: Acute Assessment and Plan Ms. Moran is an 81-year-old female patient with a known medical history of COPD, DM and history of gastric ulcers who presented to the ED with complaints of rectal bleeding x 2 days. Gastrointestinal bleed with two day history of bloody stools suspect secondary to NSAID use History of gastric ulcers and colon polyps Abdominal/Pelvis CT reviewed showing uncomplicated colonic diverticulosis. Mild prominence of the distal common bile duct measuring 10 mm. Stable right renal cyst. GI has been consulted, appreciate further recommendations and input. EGD and colonoscopy performed showing sigmoid diverticular bleeding. Encouraged high fiber diet. If rebleeding Angio/embo with high selection to left colon vasculature. Status post 3 unit PRBC. Hemoglobin 10.4 today. Continue Protonix drip. Ensure hydration, Continue IVF. PT has seen patient, no further recommendations. Supplemental O2 to keep sats >92%. Supportive care. Hypothyroidism, chronic: Continue home Levothyroxine. DVT prophylaxis: SCDs. Spoke with Dr. Martell this morning about bloody BM overnight. He wants to wait until next BM to assess if any presence of bleeding. Problem Qualifiers (1) Anemia: Qualified Codes: D64.9 - Anemia, unspecified Chrissy Sandoval Aug 13, 2017 09:31
[2017-08-13] MEDS: cloNIDine HCL 0.1 MG TAB PO PRN ×2 (10:45→18:56)
[2017-08-13 10:46] LABS: AUTOMATED NEUTROPHIL # 5.3 TH/MM3 (1.8-7.7); BASOPHIL # 0.1 TH/MM3 (0-0.2); BASOPHIL % 0.7 % (0.0-2.0); EOSINOPHIL # 0.1 TH/MM3 (0-0.4); EOSINOPHIL % 1.6 % (0.0-4.0); HEMATOCRIT 31.6 % (35.0-46.0); HEMOGLOBIN 10.4 GM/DL (11.6-15.3); LYMPH % 22.5 % (9.0-44.0); LYMPHOCYTE # 1.9 TH/MM3 (1.0-4.8); MEAN CELL VOLUME 89.1 FL (80.0-100.0); MEAN CORPUSCULAR HEMOGLOBIN 29.3 PG (27.0-34.0); MEAN CORPUSCULAR HGB CONC 32.9 % (32.0-36.0); MEAN PLATELET VOLUME 8.1 FL (7.0-11.0); MONO % 10.8 % (0.0-8.0); MONOCYTE # 0.9 TH/MM3 (0-0.9); NEUT % 64.4 % (16.0-70.0); PLATELET COUNT 272 TH/MM3 (150-450); RED BLOOD COUNT 3.55 MIL/MM3 (4.00-5.30); RED CELL DISTRIBUTION WIDTH 14.6 % (11.6-17.2); WHITE BLOOD COUNT 8.3 TH/MM3 (4.0-11.0)
[2017-08-13 12:43] VITALS: BP 166/70; PULSE 81; RESP 16; TEMP 96.8; O2SAT 93
[2017-08-13 18:31] VITALS: BP 173/72; PULSE 80; RESP 18; TEMP 98; O2SAT 93
[2017-08-13 20:00] VITALS: BP 145/66; PULSE 76; RESP 16; TEMP 97.6; O2SAT 90
[2017-08-14] VITALS: BP 142/68; PULSE 60; RESP 18; TEMP 97.6; O2SAT 93
[2017-08-14] MEDS: LEVOTHYROXINE SODIUM 100 MCG TAB PO SCH (05:19)
[2017-08-14] MEDS: PANTOPRAZOLE INJ 80 MG in SODIUM CHLORIDE 0.9% INJ 100 ML IV SCH (05:19)
[2017-08-14 06:35] LABS: AUTOMATED NEUTROPHIL # 5.2 TH/MM3 (1.8-7.7); BASOPHIL % 0.6 % (0.0-2.0); EOSINOPHIL # 0.2 TH/MM3 (0-0.4); EOSINOPHIL % 2.9 % (0.0-4.0); HEMATOCRIT 28.4 % (35.0-46.0); HEMOGLOBIN 9.4 GM/DL (11.6-15.3); LYMPH % 22.8 % (9.0-44.0); LYMPHOCYTE # 1.8 TH/MM3 (1.0-4.8); MEAN CORPUSCULAR HEMOGLOBIN 29.4 PG (27.0-34.0); MEAN PLATELET VOLUME 8.7 FL (7.0-11.0); MONO % 10.2 % (0.0-8.0); MONOCYTE # 0.8 TH/MM3 (0-0.9); NEUT % 63.5 % (16.0-70.0); PLATELET COUNT 256 TH/MM3 (150-450); RED BLOOD COUNT 3.19 MIL/MM3 (4.00-5.30); RED CELL DISTRIBUTION WIDTH 14.7 % (11.6-17.2)
[2017-08-14 06:42] LABS: BICARBONATE 29.5 MEQ/L (21.0-32.0); CALCIUM 8.1 MG/DL (8.5-10.1)
[2017-08-14 06:46] LABS: CREATININE 0.5 MG/DL (0.50-1.00)
[2017-08-14 08:00] VITALS: BP 158/70; PULSE 73; RESP 20; TEMP 98.1; O2SAT 93
[2017-08-14] MEDS: SODIUM CHLORIDE 0.9% FLUSH 10 ML FLUSH IV FLUSH SCH (09:00)
[2017-08-14] MEDS: CHOLECALCIFEROL (VIT D3) 5000 UNIT CAP PO SCH (09:42)
[2017-08-14] MEDS: DOCUSATE SODIUM 50 MG/SENNA 8.6 MG TAB PO SCH (09:42)
--- NOTE | 2017-08-14 11:34 | HHI.DCPOC ---
Discharge Care Plan Diagnosis: (1) Rectal bleeding (2) Anemia Goals to Promote Your Health * To prevent worsening of your condition and complications * To maintain your health at the optimal level Directions to Meet Your Goals Take your medications as prescribed Follow your dietary instruction Follow activity as directed Keep your appointments as scheduled Take your immunizations and boosters as scheduled If your symptoms worsen call your PCP, if no PCP go to Urgent Care Center or Emergency Room Smoking is Dangerous to Your Health. Avoid second hand smoke Call the 24-hour hour crisis hotline for domestic abuse at Robb Broderick Aug 14, 2017 11:34
--- NOTE | 2017-08-14 12:23 | HHI.DS ---
Discharge Summary Admission Date Aug 10, 2017 at 11:17 Discharge Date: Aug 14, 2017 Admitting Diagnosis GI bleed (1) Anemia ICD Code: D64.9 - Anemia, unspecified Status: Acute (2) Rectal bleeding ICD Code: K62.5 - Hemorrhage of anus and rectum Status: Acute Procedures Colonoscopy: Severe diverticulosis noted in the sigmoid and descending colon. Blood was found in the sigmoid colon and descending colon. Findings suggestive of recent diverticular bleed from the sigmoid/descending colon area. No active bleeding noted. EGD: Erythematous gastritis in the gastric antrum. Normal duodenal mucosal Brief History - From Admission Written by Chrissy Sandoval, acting as scribe for Dr. Hu on 08/10/17 at 13:15. Ms. Moran is an 81-year-old female patient with a known medical history of COPD, DM and history of gastric ulcers who presented to the ED with complaints of rectal bleeding x 2 days. Patient lives alone and has been feeling weak and passing blood in her stool so she decided to come into the ED. Does admit to taking Advil for knee inflammation x 7 days. Denies any recent illness including fever, chills, shortness of breath, abdominal pain, nausea, vomiting, diarrhea or dysuria. Denies any further bleeding since being hospitalized. Denies any chest pain or shortness of breath. Overall patient is pretty healthy and denies any other acute complaints. PCP is Dr. Edouard. CBC/BMP: 08/14/17 0540 08/14/17 0540 Significant Findings Laboratory Tests Test 08/12/17 06:06 08/13/17 10:30 08/14/17 05:40 Red Blood Count 3.40 MIL/MM3 (4.00-5.30) 3.55 MIL/MM3 (4.00-5.30) 3.19 MIL/MM3 (4.00-5.30) Hemoglobin 9.9 GM/DL (11.6-15.3) 10.4 GM/DL (11.6-15.3) 9.4 GM/DL (11.6-15.3) Hematocrit 29.8 % (35.0-46.0) 31.6 % (35.0-46.0) 28.4 % (35.0-46.0) Monocytes (%) (Auto) 13.7 % (0.0-8.0) 10.8 % (0.0-8.0) 10.2 % (0.0-8.0) Monocytes # (Auto) 1.1 TH/MM3 (0-0.9) Creatinine 0.48 MG/DL (0.50-1.00) Calcium Level 7.6 MG/DL (8.5-10.1) 8.1 MG/DL (8.5-10.1) Chloride Level 109 MEQ/L (98-107) Blood Urea Nitrogen 6 MG/DL (7-18) Random Glucose 108 MG/DL (74-106) PE at Discharge GENERAL: This is a well-nourished, well-developed patient, in no apparent distress. SKIN: No rashes, ecchymoses or lesions. Warm and dry. HEAD: Atraumatic. Normocephalic. EYES: Pupils equal round and reactive. Extraocular motions intact. No scleral icterus. No injection or drainage. ENT: Nose without bleeding, purulent drainage or septal hematoma. Throat without erythema. Uvula midline. Airway patent. NECK: Trachea midline. No JVD. Supple. CARDIOVASCULAR: Regular rate and rhythm without murmurs, gallops, or rubs. RESPIRATORY: Clear to auscultation. Breath sounds equal bilaterally. No wheezes , rales, or rhonchi. GASTROINTESTINAL: Abdomen soft, non-tender, nondistended. No guarding. MUSCULOSKELETAL: Extremities without clubbing, cyanosis, or edema. No joint tenderness, effusion, or edema noted. NEUROLOGICAL: Awake and alert. Cranial nerves II through XII intact. Motor and sensory grossly within normal limits. Five out of 5 muscle strength in all muscle groups. Normal speech. Hospital Course This is an 81-year-old female who originally presented to hospital on 08/10/17 because of 2 episodes of rectal bleeding. Patient states that she lives at home and was feeling weak and noticed that she is passing blood is also she came to the hospital for evaluation. Patient does have history of gastric ulcers and has been taking Advil for any inflammation for last week. Is recommended that the patient be placed in the hospital for further evaluation and management. Patient's original hemoglobin was 8.3. That was monitored and it did drop to 7.5. Patient was transfused 3 units of packed red blood cells. GI consultation has been requested. Patient did undergo gastroenterology evaluation. She did have panendoscopy performed which did show blood in her colon which could benefit from a recent diverticular bleed. It was recommended by the GI physician that patient was noted to have further bloody stools then patient would need interventional radiology evaluation and localize ligation. Patient did have one other episode of blood in her stool, however hemoglobin remained stable. Patient has not had any rectal bleeding over the last 24 hours. GI physician was notified and it was recommended that the patient can be discharged home and follow-up in outpatient setting. Patient's hemoglobin has remained stable. No further rectal bleeding. GI clearance has been obtained. Will plan discharge home accordingly. Pt Condition on Discharge: Stable Discharge Disposition: Discharge Home Discharge Time: > 30 minutes Discharge Instructions DIET: Follow Instructions for: Heart Healthy Diet Activities you can perform: Regular-No Restrictions Follow up Referrals: Gastroenterology - 2 Weeks PCP Follow-up - 1 Week Continued Medications: Calcium Carbonate-Cholecalciferol (Calcium 600 with Vitamin D) 600-400 mg-Unit Tab 2 TAB PO DAILY for Calcium Supplement, TAB 0 Refills Cholecalciferol (Vitamin D3) 50,000 Unit Cap 5000 UNITS PO DAILY for Nutritional Supplement, #30 CAP 0 Refills Levothyroxine (Levothyroxine) 100 Mcg Tab 100 MCG PO DAILY for Thyroid, #30 TAB 0 Refills Pyridoxine (Pyridoxine) 50 Mg Tab 50 MG PO DAILY for Nutritional Supplement, #30 TAB 0 Refills [b/p med] () Robb Broderick Aug 14, 2017 12:23
[2017-08-15] MEDS ORDERED: PANTOPRAZOLE SOD 40 MG DELAYED RELEASE TAB PO SCH (09:00)
--- NOTE | 2017-08-15 11:02 | PQ ---
Physician Query Response Document PATIENT: PB PEREIRA : 1935 ADMIT DATE: 08/10/2017 11:17 AM DISCH DATE: 08/14/2017 12:02 PM RESPONDING PROVIDER #: sulma QUERY TEXT: Anemia Type Anemia is documented in the Medical Record. Please specify the cause (includes suspected or probable cause) Such as: -- Due to acute blood loss -- Due to chronic blood loss -- Due to iron deficiency -- Due to postoperative blood loss -- Due to chronic disease -- Other, please specify The patient's Clinical Indicators include: rectal bleeding x 2 days. admit to taking Advil for knee inflammation x 7 days EGD erythematous gastritis in the gastric antrum; multiple biopsies were performed COLON severe diverticulosis noted in the sigmoid colon and descending colon 2. Blood was found in the sigmoid colon and descending colon Findings suggestive of recent diverticular bleeding from the sigmoid / descending colon area, no acti ve bleeding now 3 UNITS PRBC GIVEN Query created by: Namita Davis on 08/14/2017 10:04 AM RESPONSE TEXT: Anemia 2/2 acute blood loss use of NSAIDS Electronically signed by: Jerica Hu MD 08/15/2017 10:58 AM
== END 2017-08-14 12:02 | disposition home or self-care (01) | DRG 378 ==
LOC: PHED 09:33 → PHEDA 11:17 → PHICU 12:00 → PH3B 08-12 16:45
PROVIDERS: ADMIT Hospitalist; ATTEND Hospitalist
PROC: 30253N1 (ICD-10-PCS; 2017-08-10)
PROC: 0DB68ZX Excision of Stomach, Via Natural or Artificial Opening Endoscopic, Diagnostic (ICD-10-PCS; principal; 2017-08-11 09:00)
PROC: 0DJD8ZZ Inspection of Lower Intestinal Tract, Via Natural or Artificial Opening Endoscopic (ICD-10-PCS; 2017-08-11 09:00)
DX: K57.31 Diverticulosis of large intestine without perforation or abscess with bleeding (principal); D62 Acute posthemorrhagic anemia; J44.9 Chronic obstructive pulmonary disease, unspecified; K92.1 Melena; E11.9 Type 2 diabetes mellitus without complications; K29.70 Gastritis, unspecified, without bleeding; E89.0 Postprocedural hypothyroidism; T39.315A Adverse effect of propionic acid derivatives, initial encounter; I10 Essential (primary) hypertension; M17.9 Osteoarthritis of knee, unspecified; Z87.11 Personal history of peptic ulcer disease
CPT/HCPCS: 36415; 36430; 80048; 80053; 84155; 85014; 85018; 85025; 85610; 85730; 86850; 86900; 86901; 86920; 88305; 88312; 96374; C9113; J1940; J7030; J7050; P9016

== ENCOUNTER → 2017-12-14 | Outpatient (CLI) | payer MEDICARE ==
[~2017-12-14] MED LIST changes: +CALC1TAB87 PO; +CHOL1CAP34 PO; -DOCU1CAP39 PO; +ESSE250T PO; -HYDR2.5%T PR; -LEVO.1 PO; +LEVO100T5 PO; +LOSA50TA PO; -METR250 PO; +PYRI50TA5 PO; +VITA250T26 PO; +WALKER WHEELS/F1 MIS; +b/p med
[2017-12-14 12:25] LABS: PROTHROMBIN TIME - PATIENT 9.7 SEC (9.8-11.6)
[2017-12-14 12:48] LABS: HEMATOCRIT 34.8 % (35.0-46.0); HEMOGLOBIN 11.2 GM/DL (11.6-15.3); MEAN CELL VOLUME 78.8 FL (80.0-100.0); MEAN CORPUSCULAR HEMOGLOBIN 25.4 PG (27.0-34.0); MEAN CORPUSCULAR HGB CONC 32.2 % (32.0-36.0); PLATELET COUNT 301 TH/MM3 (150-450); RED BLOOD COUNT 4.41 MIL/MM3 (4.00-5.30); RED CELL DISTRIBUTION WIDTH 20.5 % (11.6-17.2); WHITE BLOOD COUNT 9.2 TH/MM3 (4.0-11.0)
[2017-12-14 12:51] LABS: BICARBONATE 26.5 MEQ/L (21.0-32.0); CALCIUM 8.8 MG/DL (8.5-10.1); CREATININE 0.62 MG/DL (0.50-1.00)
--- NOTE | 2017-12-14 12:52 | RADRPT ---
EXAM DATE/TIME: 12/14/2017 12:39 [facility] COMPARISON: No previous studies available for comparison. INDICATIONS : Please evaluate for pneumonia, pneumothorax, and other communicable diseases. Pre op for left knee re placement on 12/26/17. MEDICAL HISTORY : Chronic obstructive pulmonary disease. Former smoker. SURGICAL HISTORY : None. ENCOUNTER: Initial ACUITY: 1 day PAIN SCORE: 0/10 LOCATION: Bilateral chest FINDINGS: PA and lateral views of the chest demonstrate the lungs to be symmetrically aerated without evidence of mass, infiltrate or effusion. The cardiomediastinal contours are unremarkable. Osseous structure s are intact. Mild eventration of the right hemidiaphragm is noted. There are multiple surgical clips in the region of the gastroesophageal junction. Mild atherosclerotic calcifications are present in t he aorta. CONCLUSION: No acute disease. Ke Vee MD on December 14, 2017 at 12:50 Board Certified Radiologist. This report was verified electronically.
[2017-12-14 13:01] LABS: BILIRUBIN, URINE NEG (NEG); BLOOD, URINE NEG (NEG); GLUCOSE,URINE NEG (NEG); KETONE, URINE NEG (NEG); NITRITE,URINE NEG (NEG); PH, URINE 6.5 (5.0-8.5); URINE COLOR YELLOW (YELLW/STRAW); URINE LEUKOCYTE ESTERASE NEG (NEG)
[2017-12-14 13:09] LABS: HYALINE CAST, URINE 2 /lpf (RARE)
--- NOTE | 2017-12-14 22:36 | EKG ---
Date Performed: 12/14/2017 Time Performed: 12:02:50 PTAGE: 82 years EKG: Sinus rhythm Since previous tracing, no significant change noted NORMAL ECG PREVIOUS TRACING : 12/28/2014 08.28.04 DOCTOR: Barber García Interpretating Date/Time 12/14/2017 17:26:57
== END ==
LOC: CPRE 11:24
PROVIDERS: ATTEND Orthopaedic Surgery
DX: Z01.810 Encounter for preprocedural cardiovascular examination (principal); Z01.811 Encounter for preprocedural respiratory examination; Z01.812 Encounter for preprocedural laboratory examination; M17.12 Unilateral primary osteoarthritis, left knee
CPT/HCPCS: 36415; 71046; 80048; 81001; 85027; 85610; 93005

== ENCOUNTER 2017-12-26 05:37 | Inpatient (IN) | payer MEDICARE ==
--- NOTE | 2017-12-13 12:17 | MH ---
cc: Savlador Barker MD DATE OF ADMISSION: 12/26/2017 ADMITTING DIAGNOSIS: Osteoarthritis of the left knee. HISTORY OF PRESENT ILLNESS: The patient is an 82-year-old white female who has experienced almost a 7-month history of pain involving her left knee. She had noted the onset of her symptoms unrelated to injury or unusual activity. She underwent initial medical evaluation with her primary care physician, Dr. Wen Carmen who completed x-ray studies and prescribed Aleve for pain management. The patient was unable to appreciate any improvement of her symptoms and was later hospitalized in July of this year for a history of a bleeding ulcer that did require transfusion treatment. She was later placed into a therapy program with lingering symptoms of her left knee being noted. Her pain persisted for which she was having difficulty conforming to all ambulatory activities and was subsequently evaluated by the undersigned physician in October of this year. At that time, she did report that she had undergone previous arthroscopic surgery of her left knee in 2005, but was unable to be more specific with regards to her diagnosis or her treating surgeon at that time. There was an initial trend of improvement following treatment. She has also undergone previous arthroscopic surgery of her right knee almost 30 years ago, reporting an uneventful recovery at that time. Her current x-ray studies did reveal obvious degenerative changes with near omac-bp-trex apposition about the lateral compartment associated with hypertrophic reaction along the lateral joint line, involving both femoral condyle and tibial plateau. Findings and treatment options were reviewed with the patient at that time. She did receive an intra-articular steroid injection and was followed on an outpatient basis thereafter. Unfortunately, her symptoms persisted and at that time, the patient expressed her desire to proceed with a more definitive course of treatment. The pros and cons of total knee arthroplasty were outlined in detail for which the patient indicated her full understanding regarding all of the above and expressed her desire to proceed accordingly and in compliance with her wishes, she was scheduled for admission at this time in order that the above be accomplished. PAST MEDICAL HISTORY: Her past medical history, hospitalizations and surgeries have included a laparotomy for history of ulcer disease that possibly included a vagotomy. She has undergone bilateral lower extremity vein stripping, arthroscopic surgery of both knees, bilateral cataract excision colonoscopy and partial thyroidectomy. Her medical illnesses include COPD, hypothyroidism and type 2 diabetes. MEDICATIONS: Her current medications include both a thyroid supplement and medication taken for hypertension for which the patient is unable to be more specific in this regard. ALLERGIES: SHE DENIES ANY KNOWN DRUG ALLERGIES. REVIEW OF SYSTEMS: Denies headache, seizure, or syncope. Occasional sinus congestion. No epistaxis. Auditory acuity intact. No tinnitus. No bleeding gums or dysphagia. She does wear complete dentures. There is a history of bronchial asthma. Denies cough or tuberculosis. There is a positive history of pneumonia. No angina or heart disease. She is medically managed for hypertension. Appetite is good. Bowel movements are regular. No hepatitis, gallbladder disease, ulcers or hemorrhoids. There is a history of rectal bleeding. Positive history of urinary tract infection. No fractures. No psychiatric illness. Her remaining review of systems is unremarkable and noncontributory. FAMILY HISTORY: The patient has been a for 2 years, her at 82 years of age with a history of intestinal blockage. She has 3 sons, one of whom has a history of arthritis, but otherwise all indicated to be in good health. One son , 2 days . Another son at 18 years of age with a history of sarcoma of undetermined etiology. Family history is otherwise positive for diabetes, breast cancer and heart disease. SOCIAL HISTORY: The patient finished her yael year of high school. 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 She denies active use of tobacco for more than 30 years, but had been less than 1 pack per day user for at least 25 years prior to that time. Denies ethanol consumption during the past 6 months and prior to that time was a very rare consumer of alcohol. PHYSICAL EXAM: VITAL SIGNS: Height 5 feet, weight 196 pounds. GENERAL: This is an alert, oriented, and responsive 82-year-old white female who sits quietly upon the examination table with no obvious distress. HEENT: Pupils are equally round and reactive to light with bilateral corneal arcus. Extraocular movements full. External nares clear. External auditory canal is clear. Edentulous. Mucous membranes pink and moist. Pharynx clear. NECK: Supple, active range of motion with no appreciable pain. Carotid pulse palpable bilaterally. Trachea midline. Thyroid without enlargement. LUNGS: Clear to auscultation and percussion. No CVA tenderness. No discomfort throughout the dorsolumbar spine. HEART: Regular rhythm, no murmur or gallop. ABDOMEN: Mildly obese, soft, nontender, bowel sounds present. PELVIC: Per primary care physician. EXTREMITIES: Left knee, there is a fullness about the knee consistent with redundancy of soft tissue. No appreciable intra-articular effusion, slight lateral joint line tenderness. Apprehension and compression sign negative. Limited mobility in the 105 degree range of motion with mild genu recurvatum. No collateral ligamentous instability. Claudia test and drawer sign negative. Pivot shift and Brenda sign minimally positive for lateral compartment pain. Straight leg raising unremarkable at 80 degrees. Satisfactory mobility of the left hip with no associated pain. Mild antalgic gait. NEUROLOGIC: Cranial nerves 2-12 grossly intact. IMPRESSION: Osteoarthritis, left knee. PLAN: Left total knee arthroplasty. The nature of the planned surgical procedure, the potential complications and risks associated, the expectations of surgery and the consent form were thoroughly reviewed with the patient prior to admission to the hospital. Bernice cm indicated her full understanding regarding all of the above and given consent to proceed with treatment as outlined. Medical evaluation and clearance for surgery will be completed by her primary care physician, Dr. Wen Carmen. MD EFRAIN Lal/DL , 11:49 AM , 12:16 PM
[~2017-12-26] VITALS: Ht 152.4 cm; Wt 90.0 kg
[~2017-12-26 05:37] MED LIST changes: -PYRI50TA5 PO; -WALKER WHEELS/F1 MIS; -b/p med
[2017-12-26] MEDS ORDERED: ceFAZolin INJ 1,000 MG VIAL ONE (06:04)
[2017-12-26] MEDS ORDERED: CHLORHEXIDINE GLUCONATE 2 % 1 PACK (2 CLOTHS) TOPICAL PRN (06:15)
[2017-12-26] MEDS ORDERED: SODIUM CHLORID 0.9% 500 ML IV PRN (06:15)
[2017-12-26] MEDS ORDERED: POVIDONE IODINE 5% (ANTISEPSIS KIT) 4 APPLICATIONS EACH NARE PRN (06:15)
[2017-12-26] MEDS ORDERED: METOPROLOL TARTRATE 25 MG TAB PO PRN (06:15)
[2017-12-26] MEDS ORDERED: ceFAZolin 2 GM PREMIX 50 ML IV SCH (06:15)
[2017-12-26] MEDS ORDERED: LACTATED RINGER'S 1000 ML IV PRN (06:15)
[2017-12-26] MEDS ORDERED: FAT EMULSION 20% INJ 0 ML ONE (06:18)
[2017-12-26] MEDS ORDERED: MIDAZOLAM HCL 2 MG/2 ML VIAL ONE (06:32)
[2017-12-26] MEDS ORDERED: BUPIVACAINE LIPOSOME PF 1.3% 20 ML VIAL ONE (06:32)
[2017-12-26] MEDS ORDERED: ACETAMINOPHEN 1000 MG/100 ML 100 ML IV ONE (06:42)
[2017-12-26] MEDS ORDERED: TRANEXAMIC ACID 1 GM PRIOR TO PROCEDURE IV SCH ×2 (07:00)
[2017-12-26] MEDS ORDERED: TRANEXAMIC ACID INJ 1,000 MG in SODIUM CHLORIDE 0.9% INJ 100 ML IV SCH (09:30)
[2017-12-26] MEDS ORDERED: NALOXONE HCL 0.4 MG/ML AMP IV PUSH PRN (09:30)
[2017-12-26] MEDS ORDERED: diphenhydrAMINE HCL 25 MG CAP PO PRN (09:30)
[2017-12-26] MEDS ORDERED: DOCUSATE SODIUM 100 MG CAP PO PRN (09:30)
[2017-12-26] MEDS ORDERED: ONDANSETRON HCL 4 MG/2 ML VIAL IVP PRN (09:30)
[2017-12-26] MEDS ORDERED: ZOLPIDEM TARTRATE 5 MG TAB PO PRN (09:30)
[2017-12-26] MEDS ORDERED: MORPHINE SULFATE 30 MG/30 ML PCA IV SCH (09:30)
[2017-12-26] MEDS ORDERED: PHARMACY INFORMATION XX ONE (09:30)
[2017-12-26] MEDS ORDERED: Post-op Orders (for Pharmacy) XX ONE (09:30)
[2017-12-26] MEDS ORDERED: ACETAMINOPHEN 325 MG TAB PO PRN (09:30)
--- NOTE | 2017-12-26 09:32 | HHI.FF ---
Face to Face Verification Diagnosis: (1) DJD (degenerative joint disease) of knee Physical Therapy Gait training Knee: Total knee, Protocol: Left, Full weight bearing Left LE Weight Bearing: WB as tolerated Left LE Range of Motion: Active ROM Nursing Dressing Changes: Daily dressing change I have seen patient Bernice Moran on 12/26/17. My clinical findings support the need for the requested home health care services because: Limited ability to care for self High risk of falls I certify that my clinical findings support that this patient is homebound because: Post-op weakness Unsteady gait/balance Unsafe to leave home unassisted Salvador Barker MD December 26, 2017 09:32
[2017-12-26] MEDS ORDERED: *morphine SULFATE 8 MG/ML PERIprocedure ONLY ONE (09:33)
[2017-12-26] MEDS ORDERED: WALKER WHEELS/F1 MIS (09:34)
[2017-12-26] MEDS: DEXT 5%-NACL 0.45% 1000 ML INJ 1,000 ML IV SCH ×2 (09:45→19:49)
[2017-12-26] MEDS ORDERED: TRANEXAMIC ACID 1 GM POST-OP IV SCH ×2 (10:00)
--- NOTE | 2017-12-26 10:00 | MP ---
cc: Salvador Barker MD DATE OF OPERATION: 12/26/2017 PREOPERATIVE DIAGNOSIS: Osteoarthritis, left knee. POSTOPERATIVE DIAGNOSIS: Osteoarthritis left knee. PROCEDURE PERFORMED: Left total knee arthroplasty. SURGEON: Salvador Barker MD. ANESTHESIA: General endotracheal. INDICATIONS: An 82-year-old white female with a 7-month history of left knee pain of gradual onset unrelated to injury or unusual activity. She had undergone initial medical evaluation with her primary care physician, Dr. Wen Carmen, who ordered x-ray studies and prescribed Aleve for pain management. The patient was unable to appreciate any improvement of her symptoms and was later hospitalized in July of this past year for a history of a bleeding ulcer that did require transfusion treatment. She was later placed into a therapy program with lingering symptoms of her left knee being noted. Her pain persisted for which she was having difficulty conforming to all ambulatory activities and was later seen by the undersigned physician in October of this year. At that time, she reported having undergone previous arthroscopic surgery of her left knee within the previous 12 years, but was unable to be more specific with regards to her diagnosis or her treating surgeon. There was an initial trend of improvement following that procedure. She had also undergone arthroscopic surgery of her right knee almost 30 years ago, reporting an uneventful recovery at that time. Her current x-ray studies revealed obvious degenerative changes with near raer-[id number]-jjpt apposition about the lateral compartment associated with hypertrophic reaction along the lateral joint line, involving both femoral condyle and tibial plateau. Findings and treatment options were reviewed. The patient was treated with an intra-articular steroid injection while continuing to be followed on an outpatient basis. Unfortunately, her symptoms persisted and she later returned to the office expressing her desire to proceed with a more definitive course of treatment. The involvement of total knee arthroplasty was outlined in detail with emphasis being made that the decision to proceed with surgery would be left entirely to the patient's discretion. The patient readily admitted that she felt she had progressed to that point in time where she was ready to proceed accordingly and in compliance with her wishes, she was scheduled for admission at this time in order that the above be accomplished. FORMAT: Following the induction of satisfactory general anesthesia by endotracheal intubation as completed per the Department of Anesthesia, a tourniquet was established around the proximal portion of the left lower extremity while the patient was maintained in a supine orientation. The extremity proper was isolated with a U-drape thereafter being prepped with Betadine solution and draped into a sterile field in the routine manner. Prior to initiation of the actual procedure, the standard time-out protocol was completed. All parameters were appropriately addressed and confirmed by operating room personnel. The extremity was elevated for approximately 1 minute and the tourniquet, thus inflated to 300 mmHg pressure. A sharp skin incision was initiated midline over the anterior aspect of the knee and developed through underlying subcutaneous tissue with hemostasis maintained by electrocautery. By deepening dissection, the anterior capsule was exposed. A medial capsulotomy was completed and the patella subluxed in a lateral orientation exposing the joint space. Tricompartmental degenerative changes were appreciated, as well as pronounced attenuation of the anterior cruciate ligament. The articular surface of the patella was resected with power saw. The 3 holed guide was utilized for establishing post-holes. Medial and lateral meniscus structures, as well as the anterior cruciate ligament were sharply excised. A centering hole was placed in the distal aspect of the femur allowing positioning of the intramedullary guide. The distal femoral cutting jig was attached and the distal femur resected. AP measurement noted 65 mm sizing to be appropriate. The matching cutting block was positioned. Anterior, posterior and chamfer cuts were completed. The tibial plateau was thereafter subluxed in an anterior orientation allowing positioning of the extramedullary guide. The tibial plateau was resected and measured with 71 mm sizing determined to be satisfactory. A trial reduction followed utilizing a 65 mm anatomic femoral component, a 71 mm tibial base with 10, 12 and 14 mm bearing inserts trialled in a sequential fashion. The 14 mm thickness determined to be the more favorable fit. The knee was readily brought to full extension. There was no laxity to varus and valgus stress at both 0 and 90 degrees flexed posture. Orientation was confirmed as being appropriate with measurement of the pelvic guide through the mechanical access of the knee. A trial reduction followed utilizing a 31 mm standard 3 post-patellar button. Once again, good tracking was noted with no tendency towards subluxation. All trial components being removed, the remaining portion of the proximal tibia was prepared for insertion of the permanent component. The joint space was thoroughly lavaged and dried. An autogenous bone plug was inserted into the distal femoral guide hole and thereafter a preparation of Palacos bone cement was utilized in inserting knee components in a sequential fashion which included a 71 mm fixed cruciate tibial plate, to which, a 14 mm Vanguard tibial bearing insert was secured with locking acharya. The 65 mm Vanguard femoral component was firmly seated onto the distal femur, excess cement being removed, the knee was brought to full extension and thereafter, the 31 mm standard 3-post patellar button was attached and maintained in place with patellar clamp while cement hardening was completed. Final range of motion assessment noted good tracking and stability throughout the knee. Irrigation was repeated with hemostasis maintained. Autovac drain tubes were inserted through superior stab wounds. The capsule was repaired with 0 Vicryl suture. The remaining portion of the wound was closed in layers in the routine manner, skin margins being reapproximated with a running subcuticular 3-0 Vicryl suture over which Steri-Strips were applied. Xeroform gauze and a bulky dry sterile dressing were placed. Tourniquet deflated after 48 minutes of tourniquet time, the extremity being supported in a canvas knee splint. Anesthesia was discontinued and the patient was thereafter transferred to a hospital bed and returned to the recovery room in satisfactory condition having tolerated her operative procedure well. Estimated blood loss was approximately 250 mL as determined per anesthesia. All implants were of the [employer] manufacture. MD EFRAIN Lal/DL , 09:25 AM , 09:59 AM
--- NOTE | 2017-12-26 11:11 | RADRPT ---
EXAM DATE/TIME: 12/26/2017 10:05 [facility] COMPARISON: No previous studies available for comparison. INDICATIONS : Post-op left knee. MEDICAL HISTORY : Chronic obstructive pulmonary disease SURGICAL HISTORY : None. ENCOUNTER: Initial ACUITY: 1 day PAIN SCORE: 0/10 LOCATION: Left Knee. FINDINGS: AP and lateral views of the knee following arthroplasty reveals a prosthesis in anatomic alignment. F racture is not appreciated. Surgical drain is evident. CONCLUSION: Status post total knee arthroplasty. Gilles Marsh MD FACR Board Certified Radiologist. This report was verified electronically.
[2017-12-26 12:00] VITALS: BP 133/60; PULSE 63; RESP 17; TEMP 97.4; O2SAT 98
[2017-12-26] MEDS ORDERED: GLYCOPYRROLATE 1 MG/5 ML SYRINGE IV PUSH ONE (12:00)
[2017-12-26] MEDS ORDERED: ONDANSETRON HCL 4 MG/2 ML VIAL IV ONE (12:00)
[2017-12-26] MEDS ORDERED: PROPOFOL 200 MG/20 ML AMP IV ONE (12:00)
[2017-12-26] MEDS ORDERED: DEXAMETHASONE SOD PHOS 4 MG/ML VIAL IV ONE (12:00)
[2017-12-26] MEDS ORDERED: VECURONIUM BROMIDE 20 MG VIAL IV ONE (12:00)
[2017-12-26] MEDS ORDERED: ENALAPRILAT 1.25 MG/ML VIAL IV PUSH PRN (12:00)
[2017-12-26] MEDS ORDERED: ROCURONIUM INJ 50 MG/5 ML SYRINGE IV PUSH ONE (12:00)
[2017-12-26] MEDS ORDERED: LABETALOL HCL 100 MG/20 ML VIAL IV ONE (12:00)
[2017-12-26] MEDS ORDERED: NEOSTIGMINE 5 MG/5 ML SYRINGE IV PUSH ONE (12:00)
[2017-12-26] MEDS ORDERED: ePHEDrine/NS 25 MG/5 ML SYRINGE IV ONE (12:00)
[2017-12-26] MEDS ORDERED: SODIUM CHLORIDE 0.9% 20 ML VIAL IV ONE (12:00)
[2017-12-26] MEDS ORDERED: LIDOCAINE HCL 1% PF 5 ML SYRINGE OTHER ONE (12:00)
--- NOTE | 2017-12-26 12:10 | PD.CONS ---
HPI Service [facility] Hospitalists Consult Requested By Dr. Barker Reason for Consult Medical management Primary Care Physician Wen Carmen MD Diagnoses: (1) COPD (chronic obstructive pulmonary disease) (2) Diabetes mellitus (3) Hypothyroidism (4) DJD (degenerative joint disease) of knee History of Present Illness The patient is an 82-year-old female admitted for left total knee arthroplasty. Hospitalist consultation was requested for medical management. Patient reports history of diet controlled diabetes, hypertension, hypothyroidism. She states that her pain is currently well controlled. She had a nerve block. Denies chest pain or dyspnea. Denies nausea or vomiting. Review of Systems Constitutional: DENIES: Fever, Chills, Night Sweats Eyes: DENIES: Blurred vision, Vision loss Ears, nose, mouth, throat: DENIES: Hearing loss Respiratory: DENIES: Cough, Wheezing, Sputum production, Shortness of breath Cardiovascular: DENIES: Chest pain, Palpitations, Dyspnea on Exertion, Lower Extremity Edema Gastrointestinal: DENIES: Abdominal pain, Constipation, Diarrhea, Nausea, Vomiting Genitourinary: DENIES: Urinary frequency, Urinary incontinence, Urgency, Hematuria, Dysuria, Nocturia Musculoskeletal: COMPLAINS OF: Joint pain, DENIES: Muscle aches Integumentary: DENIES: Pruritus, Rash Hematologic/lymphatic: DENIES: Bruising Neurologic: DENIES: Headache Past Family Social History Allergies: Coded Allergies: No Known Allergies (Verified Allergy, Unknown, 12/26/17) Past Medical History COPD Diabetes Hypertension Hypothyroidism Past Surgical History Laparotomy for ulcers Bilateral lower extremity vein stripping Arthroscopic knee surgery bilaterally Bilateral cataract surgery Reported Medications Losartan 50 mg daily Calcium daily Magnesium Levothyroxine 100mcg daily Vitamin B6 Vitamin D3 Family History Diabetes Social History Quit smoking "many years ago". Rare alcohol use. Denies illicit drug use. Physical Exam Vital Signs Vital Signs Date Time Temp Pulse Resp B/P (MAP) Pulse Ox O2 Delivery O2 Flow Rate FiO2 12/26/17 11:12 12 12/26/17 06:11 98.0 84 16 174/82 (112) 94 12/26/17 06:00 100 Nasal Cannula Physical Exam GENERAL: Elderly female in no acute distress. HEENT: Normocephalic, atraumatic. Pupils equal, round and reactive. Extraocular movements intact. No scleral icterus. No injection or drainage. Oropharynx is clear. Mucous membranes are moist. CARDIOVASCULAR: Regular rate and rhythm without murmurs, gallops, or rubs. RESPIRATORY: Clear to auscultation. No wheezes, rales, or rhonchi. Breathing is non-labored. GASTROINTESTINAL: Abdomen soft, non-tender, nondistended. EXTREMITIES: No lower extremity edema. No calf tenderness. SCDs. PSYCH: Alert and oriented x 3. Imaging Last Impressions Knee X-Ray 12/26/17 0927 Signed Impressions: Service Date/Time: Tuesday, December 26, 2017 10:05 - CONCLUSION: Status post total knee arthroplasty. Gilles Marsh MD Assessment and Plan Assessment and Plan 1. Osteoarthritis: Status post left total knee arthroplasty. Management per orthopedic surgery. Continue pain control, bowel regimen, physical therapy. 2. Hypertension: Resume losartan 50 mg daily. Vasotec as needed. 3. Hypothyroidism: Continue Synthroid. 4. Diet-controlled diabetes mellitus: Monitor Accu-Cheks and cover with sliding scale insulin. 5. DVT prophylaxis: Xarelto. Problem Qualifiers (1) DJD (degenerative joint disease) of knee: Qualified Codes: M17.12 - Unilateral primary osteoarthritis, left knee Robb Vásquez MD December 26, 2017 12:10
[2017-12-26] MEDS ORDERED: DEXTROSE 50% IN WATER 50 ML VIAL(D50) IV PUSH PRN (12:15)
[2017-12-26] MEDS ORDERED: GLUCAGON 1 MG/ML VIAL OTHER PRN (12:15)
[2017-12-26] MEDS: PCA - TOTAL MG MORPHINE DELIVERED PER SHIFT SCH ×2 (14:00→19:51)
[2017-12-26 16:00] VITALS: BP 156/76; PULSE 64; RESP 17; TEMP 97.1; O2SAT 98
[2017-12-26 16:31] VITALS: O2SAT 100
[2017-12-26] MEDS: INSULIN ASPART SUPPLEMENTAL SCALE SQ SCH (19:59)
[2017-12-26 20:00] VITALS: BP 133/62; PULSE 83; RESP 16; TEMP 97.4; O2SAT 93
[2017-12-27 00:01] VITALS: BP 145/56; PULSE 80; RESP 17; TEMP 98.1; O2SAT 93
[2017-12-27] MEDS: DEXT 5%-NACL 0.45% 1000 ML INJ 1,000 ML IV SCH ×4 (00:09→20:53)
[2017-12-27 04:00] VITALS: BP 123/67; PULSE 73; RESP 17; TEMP 97.3; O2SAT 95
[2017-12-27 04:41] LABS: HEMATOCRIT 27.8 % (35.0-46.0)
[2017-12-27] MEDS: LEVOTHYROXINE SODIUM 100 MCG TAB PO SCH (06:13)
[2017-12-27] MEDS: PCA - TOTAL MG MORPHINE DELIVERED PER SHIFT SCH ×3 (06:13→22:00)
[2017-12-27] MEDS ORDERED: ASPI-183 PO (06:26)
[2017-12-27] MEDS ORDERED: HYDR-3516 PO (06:26)
[2017-12-27 08:00] VITALS: BP 122/58; PULSE 82; RESP 16; TEMP 98.4; O2SAT 93
[2017-12-27] MEDS: INSULIN ASPART SUPPLEMENTAL SCALE SQ SCH ×4 (08:00→20:53)
[2017-12-27] MEDS: LOSARTAN 50 MG TAB PO SCH (09:49)
[2017-12-27] MEDS: CALCIUM/VITAMIN D 250 MG/125 U TAB PO SCH (09:49)
[2017-12-27] MEDS: RIVAROXABAN 10 MG TAB PO SCH (09:50)
--- NOTE | 2017-12-27 11:13 | HHI.PR ---
Subjective Remarks Patient sitting up in chair A&O tolerating PO c/o feeling constipated as she is usually very regular and has BM every day. Patient concerned she has not had BM today Objective Vitals Vital Signs Date Time Temp Pulse Resp B/P (MAP) Pulse Ox O2 Delivery O2 Flow Rate FiO2 12/27/17 09:24 Nasal Cannula 2.00 12/27/17 08:00 98.4 82 16 122/58 (79) 93 12/27/17 06:13 17 12/27/17 04:00 97.3 73 17 123/67 (85) 95 12/27/17 00:01 98.1 80 17 145/56 (85) 93 12/26/17 20:00 97.4 83 16 133/62 (85) 93 12/26/17 19:51 17 12/26/17 16:31 100 Nasal Cannula 2.00 12/26/17 16:00 97.1 64 17 156/76 (102) 98 12/26/17 14:00 18 12/26/17 12:00 97.4 63 17 133/60 (84) 98 12/26/17 11:15 56 12 146/72 (96) 100 Nasal Cannula 2 12/26/17 11:12 12 Result Diagram: 12/27/17 0414 Other Results Laboratory Tests Test 12/27/17 04:14 Hemoglobin 9.0 GM/DL Hematocrit 27.8 % Imaging Last Impressions Knee X-Ray 12/26/17 0927 Signed Impressions: Service Date/Time: Tuesday, December 26, 2017 10:05 - CONCLUSION: Status post total knee arthroplasty. Gilles Marsh MD Objective Remarks GENERAL: This is a well-nourished, well-developed patient, in no apparent distress. CARDIOVASCULAR: Regular rate and rhythm RESPIRATORY: Clear to auscultation. Breath sounds equal bilaterally. GASTROINTESTINAL: Abdomen soft, non-tender, nondistended. Normal active bowel sounds MUSCULOSKELETAL: Extremities without clubbing, cyanosis, or edema. Post-op dressing dry and intact NEURO: Alert & Oriented x4 to person, place, time, situation. Moves all ext x4 A/P Problem List: (1) COPD (chronic obstructive pulmonary disease) ICD Codes: J44.9 - Chronic obstructive pulmonary disease, unspecified (2) Diabetes mellitus ICD Codes: E11.9 - Type 2 diabetes mellitus without complications (3) Hypothyroidism ICD Codes: E03.9 - Hypothyroidism, unspecified (4) DJD (degenerative joint disease) of knee ICD Codes: M17.10 - Unilateral primary osteoarthritis, unspecified knee Assessment and Plan 1. Osteoarthritis: Status post left total knee arthroplasty. Management per orthopedic surgery. On on HOST per orthopedic surgery. Continue pain control, bowel regimen, physical therapy. 2. Hypertension: continue losartan 50 mg daily. Vasotec as needed. 3. Hypothyroidism: Continue Synthroid. 4. Diet-controlled diabetes mellitus: Monitor Accu-Cheks and cover with sliding scale insulin. 5. Constipation: add colace BID and milk of magnesia x 1 6 DVT prophylaxis: Xarelto. Supervising physician Dr. Vásquez Problem Qualifiers (1) DJD (degenerative joint disease) of knee: Qualified Codes: M17.12 - Unilateral primary osteoarthritis, left knee Tanvi Mckeon December 27, 2017 11:13
[2017-12-27] MEDS ORDERED: MAGNESIUM HYDROXIDE SUSP 30 ML CUP PO ONE (11:15)
[2017-12-27 12:00] VITALS: BP 121/58; PULSE 84; RESP 18; TEMP 98.1; O2SAT 93
[2017-12-27 16:00] VITALS: BP 136/61; PULSE 88; RESP 18; TEMP 98.3; O2SAT 92
[2017-12-27 20:00] VITALS: BP 132/60; PULSE 98; RESP 18; TEMP 98.8; O2SAT 95
[2017-12-27] MEDS: DOCUSATE SODIUM 100 MG CAP PO SCH (20:53)
[2017-12-28] VITALS (8 sets, daily range): BP systolic 113–151; BP diastolic 61–66; PULSE 87–111; RESP 16–20; TEMP 97.5–99.4; O2SAT 93–98
[2017-12-28] MEDS: DEXT 5%-NACL 0.45% 1000 ML INJ 1,000 ML IV SCH ×3 (05:42→19:32)
[2017-12-28] MEDS: LEVOTHYROXINE SODIUM 100 MCG TAB PO SCH (05:42)
[2017-12-28] MEDS: PCA - TOTAL MG MORPHINE DELIVERED PER SHIFT SCH (06:00)
--- NOTE | 2017-12-28 06:52 | MD ---
cc: Salvador Barker MD, Sandra L MD DATE OF DISCHARGE: 12/29/2017 ADMISSION DIAGNOSIS: Osteoarthritis left knee. DISCHARGE DIAGNOSIS: Osteoarthritis left knee. HISTORY: An 82-year-old white female with a 7-month history of left knee pain of gradual onset unrelated to injury or unusual activity. She had undergone initial medical evaluation with her primary care physician, Dr. Wen Carmen who completed x-ray studies and prescribed Aleve for pain management. The patient was unable to appreciate any improvement and was later hospitalized in July of this year for a history of a bleeding ulcer that did require transfusion treatment. She was later placed into a therapy program with lingering symptoms about the left knee being noted. Her pain persisted for which she was having difficulty conforming to all ambulatory activities and was later seen by the undersigned physician in October of this year. At that time, she reported that she had undergone previous arthroscopic surgery of her left knee in 2005, but was unable to be more specific with regards to her diagnosis or her treating surgeon. There was an initial trend of improvement following that treatment. She had also undergone previous arthroscopic surgery of her right knee almost 30 years ago reporting an uneventful recovery at that time. Her current x-ray studies did revealed obvious degenerative changes with near [id number] apposition about the lateral compartment associated with hypertrophic reaction along the lateral joint line involving both femoral condyle and tibial plateau. The findings and treatment options were reviewed with the patient. She did receive an intra-articular steroid injection and was continued to be followed on an outpatient basis. Unfortunately, her symptoms persisted and she return to the office in followup disposition expressing her desire to proceed with a more definitive course of treatment. The involvement of total knee arthroplasty was outlined in detail with emphasis being made that the decision to proceed with surgery would be left entirely to the patient's discretion. She readily admitted that she was ready to proceed in this direction and in compliance with her wishes, she was scheduled for admission at this time. Her physical examination at the time of admission revealed a generalized fullness about the left knee that was consistent with redundancy of soft tissue. There was no obvious intra-articular effusion. Lateral joint line tenderness. Apprehension and compression sign negative. Limited mobility in the 105 degree range of motion with mild genu recurvatum. No collateral ligamentous instability. Claudia test and drawer sign negative. Pivot shift and Brenda sign positive for lateral compartment pain. Straight leg raising unremarkable at 80 degrees. Satisfactory mobility of the left hip with no associated pain. Mild antalgic gait. HOSPITAL COURSE: Prior to admission to the hospital, the patient had undergone medical evaluation and clearance for surgery as completed by Dr. Wen Carmen. She was taken to the operating room on 26 Dec 2017 and on that date underwent a left total knee arthroplasty completed in an uncomplicated manner. The patient was noted to have tolerated her operative procedure well. Her postoperative course, stable thereafter. Hemoglobin and hematocrit assessment postoperatively was 9 and 27.8 respectively. The patient was progressively mobilized under the guidance of physical therapy being permitted weightbearing to tolerance about the left lower extremity. Followup examination of her surgical wound noted to be intact, healing favorably with no evidence of infection. Medical followup per the hospitalist service, DVT prophylaxis initiated. Polysomnograph Tech consulted to assist with discharge planning. The patient had indicated her desire to be discharged to a group home facility to continue her rehabilitation in that setting. Plans were finalized in that regard and pending medical clearance, she was scheduled for transfer on the third postoperative day, at which time she was noted to making slow but steady progress with regards to her rehab program. She was scheduled to be seen in office followup in approximately 4 weeks. CONDITION AT THE TIME OF DISCHARGE: Stable. PROGNOSIS: Favorable. DISCHARGE MEDICATIONS: Included hydrocodone 5/325, #30 and Aspirin 325 mg 1 tab twice daily for 3 weeks, #30. Salvador Barker MD NBS/DL , 06:28 AM , 06:51 AM
[2017-12-28] MEDS: INSULIN ASPART SUPPLEMENTAL SCALE SQ SCH ×4 (08:00→20:27)
[2017-12-28] MEDS: LOSARTAN 50 MG TAB PO SCH (09:19)
[2017-12-28] MEDS: CALCIUM/VITAMIN D 250 MG/125 U TAB PO SCH (09:19)
[2017-12-28] MEDS: RIVAROXABAN 10 MG TAB PO SCH (09:20)
[2017-12-28] MEDS: DOCUSATE SODIUM 100 MG CAP PO SCH (09:20)
[2017-12-28] MEDS: MAGNESIUM HYDROXIDE SUSP 30 ML CUP PO PRN ×2 (09:23→17:58)
[2017-12-28] MEDS: ACETAMINOPHEN/HYDROcodone 325 MG/5 MG TAB PO PRN ×2 (10:24→19:31)
--- NOTE | 2017-12-28 12:56 | HHI.PR ---
Subjective Remarks Follow-up hypertension, constipation, diabetes. The patient states that she feels tired today. Otherwise no complaints at this time. Still no bowel movement. Pain is well controlled. Denies nausea or vomiting. Denies chest pain or dyspnea. Objective Vitals Vital Signs Date Time Temp Pulse Resp B/P (MAP) Pulse Ox O2 Delivery O2 Flow Rate FiO2 12/28/17 11:20 98.2 99 16 113/63 (80) 95 12/28/17 08:21 99.1 99 18 135/63 (87) 12/28/17 08:00 99.1 99 18 135/63 (87) 98 12/28/17 06:00 16 12/28/17 04:00 99.4 111 20 145/66 (92) 93 12/28/17 00:00 99.2 109 20 136/63 (87) 93 12/27/17 22:00 19 12/27/17 20:00 98.8 98 18 132/60 (84) 95 12/27/17 16:00 98.3 88 18 136/61 (86) 92 12/27/17 14:00 16 I/O 12/27/17 12/27/17 12/27/17 12/28/17 12/28/17 12/28/17 07:00 15:00 23:00 07:00 15:00 23:00 Intake Total 460 ml 1260 ml 1220 ml Output Total 70 ml 138 ml 40 ml Balance 390 ml 1122 ml 1180 ml Intake Oral 360 ml 1260 ml 220 ml IV Total 100 ml 1000 ml Output Urine Total 3 ml Drainage Total 70 ml 135 ml 40 ml # Voids 3 2 # Bowel Movements 0 0 0 Result Diagram: 12/27/17 0414 Imaging Last Impressions Knee X-Ray 12/26/17 0927 Signed Impressions: Service Date/Time: Tuesday, December 26, 2017 10:05 - CONCLUSION: Status post total knee arthroplasty. Gilles Marsh MD Objective Remarks General: Elderly female in no acute distress. Sitting up in a chair. Heart: Regular rate and rhythm. No murmur. Lungs: Clear to auscultation bilaterally. No wheezes, rales, or rhonchi. Breathing is nonlabored. Abdomen: Soft, nontender, nondistended. +bowel sounds Extremities: No lower extremity edema. Psych: Alert and oriented. Neuro: Normal speech. No focal deficits noted. Procedures 12/26/17 left total knee arthroplasty Urinary Catheter: No Vascular Central Line Catheter: No A/P Problem List: (1) COPD (chronic obstructive pulmonary disease) ICD Code: J44.9 - Chronic obstructive pulmonary disease, unspecified (2) Diabetes mellitus ICD Code: E11.9 - Type 2 diabetes mellitus without complications (3) Hypothyroidism ICD Code: E03.9 - Hypothyroidism, unspecified (4) DJD (degenerative joint disease) of knee ICD Code: M17.10 - Unilateral primary osteoarthritis, unspecified knee Assessment and Plan 1. Osteoarthritis: Status post left total knee arthroplasty. Management per orthopedic surgery. Continue pain control, bowel regimen, physical therapy. 2. Hypertension: Continue losartan. Vasotec as needed. 3. Hypothyroidism: Continue Synthroid. 4. Diabetes mellitus, diet controlled: Monitor Accu-Cheks and cover with sliding scale insulin. 5. Constipation: Adjust bowel regimen. Patient reports a problem with chronic constipation. 6. DVT prophylaxis: Xarelto. Discharge Planning Discharge to SNF tomorrow. Problem Qualifiers (1) DJD (degenerative joint disease) of knee: Qualified Codes: M17.12 - Unilateral primary osteoarthritis, left knee Robb Vásquez MD December 28, 2017 12:56
[2017-12-28] MEDS ORDERED: BISACODYL 10 MG SUPP RECTAL PRN (13:00)
[2017-12-28] MEDS ORDERED: LACTULOSE SYRUP 20 GM/30 ML CUP PO PRN (13:00)
[2017-12-28] MEDS ORDERED: SENNOSIDES 8.6 MG TAB PO PRN (13:00)
[2017-12-28] MEDS: DOCUSATE SODIUM 50 MG/SENNA 8.6 MG TAB PO SCH (19:32)
[2017-12-29] MEDS: LEVOTHYROXINE SODIUM 100 MCG TAB PO SCH (06:01)
[2017-12-29] MEDS: INSULIN ASPART SUPPLEMENTAL SCALE SQ SCH ×2 (08:00→12:00)
[2017-12-29] MEDS: RIVAROXABAN 10 MG TAB PO SCH (08:20)
[2017-12-29] MEDS: CALCIUM/VITAMIN D 250 MG/125 U TAB PO SCH (08:20)
[2017-12-29] MEDS: DOCUSATE SODIUM 50 MG/SENNA 8.6 MG TAB PO SCH (08:21)
[2017-12-29] MEDS: LOSARTAN 50 MG TAB PO SCH (08:21)
[2017-12-29] MEDS: ACETAMINOPHEN/HYDROcodone 325 MG/5 MG TAB PO PRN ×2 (08:28→14:12)
[2017-12-29 08:30] VITALS: BP 134/60; PULSE 95; RESP 18; TEMP 97.8; O2SAT 94
[2017-12-29 12:09] VITALS: BP 137/66; PULSE 80; RESP 18; TEMP 97.8; O2SAT 96
== END 2017-12-29 14:51 | DRG 470 ==
LOC: HSDI 05:37 → N06A 11:31
PROVIDERS: ADMIT Orthopaedic Surgery; ATTEND Orthopaedic Surgery
PROC: 3E0T3BZ Introduction of Anesthetic Agent into Peripheral Nerves and Plexi, Percutaneous Approach (ICD-10-PCS; 2017-12-26)
PROC: 0SRD0J9 Replacement of Left Knee Joint with Synthetic Substitute, Cemented, Open Approach (ICD-10-PCS; principal; 2017-12-26 06:42)
DX: M17.12 Unilateral primary osteoarthritis, left knee (principal); J44.9 Chronic obstructive pulmonary disease, unspecified; E11.9 Type 2 diabetes mellitus without complications; E03.9 Hypothyroidism, unspecified; I10 Essential (primary) hypertension; M21.869 Other specified acquired deformities of unspecified lower leg; K59.09 Other constipation; Z87.891 Personal history of nicotine dependence; Z79.899 Other long term (current) drug therapy; Z87.11 Personal history of peptic ulcer disease
CPT/HCPCS: 73560; 82948; 85014; 85018; 86850; 86900; 86901; 88305; 88311; 94150; C1776; C9290; J0131; J0690; J1100; J1815; J2250; J2270; J2405; J2710; J3010; J7120; L1830